=== PATIENT | female | born 1970 | race Caucasian/White ===

== ENCOUNTER 2018-03-03 20:34 | Inpatient (IN) ==
[2018-03-03] MEDS ORDERED: Ondansetron 4 MG/2 ML VIAL IVP STA (21:48)
--- NOTE | 2018-03-03 21:53 | Emergency Department Note ---
Disposition Clinical Impression: Febrile neutropenia, Cancer of anorectum Diarrhea Qualifiers: Diarrhea type: unspecified type Qualified Code(s): R19.7 - Diarrhea, unspecified Disposition: Admitted As Inpatient Forms: ED Satisfaction Letter General Adult HPI - General Chief complaint: ED Fever Stated complaint: "Fever/Sent by Cancer Doctor" Time Seen by Provider: 03/03/18 21:34 Source: patient Limitations: no limitations - History of Present Illness HPI Narrative: Patient with anorectal cancer metastasis to lymph nodes undergoing chemotherapy and radiation referred in by her oncologist due to fever up to 101.2 at home, 3 days after chemotherapy. She is having a bowel movement about every 2 hours as she describes as yellow and C and E. The power on the way out. She also had burning with urination that she attributes to her radiation therapy. There is some intermittent abdominal discomfort over she has no abdominal pain now. She has noted blood in her stool, which is not uncommon for her. No new rashes, she is being treated for cutaneous candidiasis. No chest pain currently, although she has intermittent chest pressure. She attributes this chest pressure to the chemotherapy and says is common for her after chemotherapy. Denies shortness of breath, cough, rhinorrhea, sore throat, ear pain. No vomiting. Pain Scale: 4 - Related Data Home Medications Medication Instructions Recorded Confirmed Mag-Oxide Magnesium 400 mg PO DAILY 06/21/17 02/24/18 Flaxseed Oil/[place] 3,6,9 [Sv 1 each PO DAILY 01/07/18 02/24/18 Flaxseed Oil 1,300 mg Sftgl] Hydrocortisone 1% CREAM [Cortaid] 28 appl TP BID 01/07/18 02/24/18 Previous Rx's Medication Instructions Recorded Lactulose [Enulose] 10 gm PO BID PRN #500 mls 01/07/18 Dexamethasone [Decadron] 4 mg PO BID PRN #45 tab 01/15/18 Lidocaine/Prilocaine [Emla] 1 appl TP AD PRN #30 gm 01/15/18 Ondansetron [Zofran] 8 mg PO Q8HR PRN #60 tablet 01/15/18 Prochlorperazine Maleate 10 mg PO Q6HR PRN #90 tablet 01/15/18 [Compazine] HydrOXYzine Pamoate [Vistaril] 50 mg PO BID PRN #60 capsule 01/20/18 predniSONE [PredniSONE] 10 mg PO AD #21 tablet 01/20/18 Omeprazole [PriLOSEC] 20 mg PO DAILY #30 cap 01/30/18 Magic Mouthwash [Magic Mouthwash 10 ml PO QID PRN #240 ml 02/03/18 BLM] Nystatin [Nystatin Suspension] 500,000 units PO QID #120 ml 02/03/18 Fluconazole [Diflucan] 100 mg PO DAILY #7 tablet 02/06/18 Doxycycline Hyclate 100 mg PO BID 10 Days #20 capsule 02/10/18 Oxycodone HCl 5 mg PO BID PRN 30 Days #60 tablet 02/18/18 Phenazopyridine [Pyridium] 100 mg PO TID PRN #90 tablet 02/20/18 Morphine Sulfate [Arymo ER] 15 mg PO Q12H 20 Days #40 tab.po.er 02/26/18 Allergies Allergy/AdvReac Type Severity Reaction Status Date / Time Penicillins Allergy Rash Verified 03/03/18 20:47 Sulfa (Sulfonamide Allergy Rash Verified 03/03/18 20:47 Antibiotics) All systems ED: reviewed and negative except as stated. Past Medical History - Past Medical History Medical history: Reports: cancer, migraine Surgical history: Reports: Psychiatric history: Reports: no psych history - Social History Smoking Status: Never smoker Smokeless Tobacco Status: No Alcohol use: Reports: none Drug use: Reports: none Physical Exam Vital signs noted please see nurse's notes. Gen.: Well-developed, well-nourished patient lying in bed who appears nontoxic. Head: Atraumatic, normocephalic. Eyes: Sclerae anicteric. ENT: Mucous membranes moist. Heart: Regular rate and rhythm without appreciable murmur. Lungs: Normal respiratory pattern without respiratory distress, lungs clear to auscultation bilaterally. Abdomen: Soft, nontender, nondistended, no guarding or peritoneal signs. Skin: Warm and dry with changes consistent with cutaneous candidiasis in the groin folds. No signs of cellulitis. Rectal: External exam reveals hemorrhoids but no abscess. Digital exam deferred. Neurologic: Awake, alert with normal speech and mental status. Cranial nerves grossly intact. No focal deficits or lateralizing signs. Psychiatric: Normal mood and affect. Muscular skeletal: No peripheral edema. No signs of trauma or DVT. - General Limitations: no limitations General appearance: alert, in no apparent distress Course Vital Signs Temperature 98.3 F 03/03/18 20:47 Pulse Rate 104 03/03/18 20:47 Respiratory Rate 14 03/03/18 20:47 Blood Pressure 121/79 03/03/18 20:47 O2 Sat by Pulse Oximetry 92 03/03/18 20:47 Temperature 98.3 F 03/03/18 20:47 Pulse Rate 104 03/03/18 20:47 Respiratory Rate 14 03/03/18 20:47 Blood Pressure 121/79 03/03/18 20:47 O2 Sat by Pulse Oximetry 92 03/03/18 20:47 Oxygen Delivery Oxygen Delivery Room Air Medical Decision Making - Lab Data Result diagrams: 03/03/18 22:08 03/03/18 22:08 Lab Results 03/03/18 03/03/18 03/03/18 Range/Units 22:08 22:08 22:08 WBC 1.5 L (4.3-11.1) K/mcL RBC 3.81 L (3.82-4.97) M/mcL Hgb 11.4 L (11.5-15.4) g/dL Hct 32.9 L (35.3-44.9) % MCV 86.4 (83.0-100.0) fL MCH 29.9 (28.0-33.3) pg MCHC 34.7 (31.6-35.5) g/dL RDW 13.5 (11.5-14.5) % Plt Count 183 (140-400) K/mcL MPV 9.7 (9.4-12.4) fL Immature Gran % 1.3 (0-4) % Seg Neutrophils % 61.2 % Lymphocytes % 7.9 % Monocytes % 24.3 % Eosinophils % 4.6 % Basophils % 0.7 % Neutrophils # 0.9 L (1.6-8.9) K/mcL Lymphocytes # 0.1 L (0.6-4.6) K/mcL Monocytes # 0.4 (0.0-1.3) K/mcL Eosinophils # 0.1 (0.0-0.6) K/mcL Basophils # 0.0 (0.0-0.2) K/mcL Nucleated RBCs/100 WBC 1.3 H (0) /100 WBC Platelet Estimate Normal (Normal) Sodium 127 L (136-145) mEq/L Potassium 3.7 (3.5-5.1) mEq/L Chloride 86 L (98-107) mEq/L Carbon Dioxide 33 H (23-29) mEq/L BUN 28 H (6-20) mg/dL Creatinine 1.05 (0.60-1.20) mg/dL Est GFR ( Amer) > 60 (> 60) Est GFR (Non-Af Amer) 56 L (> 60) BUN/Creatinine Ratio 27 H (6-26) Glucose 150 H (70-105) mg/dL Calculated Osmolality 272 L (280-300) Calcium 9.3 (8.6-10.3) mg/dL Total Bilirubin 1.5 H (0.3-1.0) mg/dL AST 12 L (13-39) Units/L ALT 15 (7-52) Units/L Alkaline Phosphatase 45 (34-104) Units/L Troponin I 0.03 (< 0.04) ng/mL Serum Total Protein 5.9 L (6.4-8.9) g/dL Albumin 3.4 L (3.5-5.7) g/dL Globulin 2.5 (2.4-3.5) g/dL Albumin/Globulin Ratio 1.4 (1.1-2.2)
[2018-03-03 22:23] LABS: Basophils % 0.7 %; Eosinophils # 0.1 K/mcL (0.0-0.6); Eosinophils % 4.6 %; Hematocrit 32.9 % (35.3-44.9); Hemoglobin 11.4 g/dL (11.5-15.4); Immature Granulocytes % 1.3 % (0-4); Lymphocytes # 0.1 K/mcL (0.6-4.6); Lymphocytes % 7.9 %; Mean Corpuscular HGB Conc 34.7 g/dL (31.6-35.5); Mean Corpuscular Hemoglobin 29.9 pg (28.0-33.3); Mean Corpuscular Volume 86.4 fL (83.0-100.0); Mean Platelet Volume 9.7 fL (9.4-12.4); Monocytes # 0.4 K/mcL (0.0-1.3); Monocytes % 24.3 %; Neutrophils # 0.9 K/mcL (1.6-8.9); Nucleated Red Blood Cells 1.3 /100 WBC (0); Platelet Count 183 K/mcL (140-400); Red Blood Count 3.81 M/mcL (3.82-4.97); Red Cell Distribution Width 13.5 % (11.5-14.5); Segmented Neutrophils % 61.2 %
[2018-03-03] MEDS ORDERED: Lidocaine Viscous Oral Soln 15 ML SOLUTION ONE (22:40)
[2018-03-03 22:45] LABS: Alanine Aminotransferase 15 Units/L (7-52); Albumin 3.4 g/dL (3.5-5.7); Albumin/Globulin Ratio 1.4 (1.1-2.2); Alkaline Phosphatase 45 Units/L (34-104); Aspartate Amino Transferase 12 Units/L (13-39); BUN/Creatinine Ratio 27 (6-26); Bilirubin,Total 1.5 mg/dL (0.3-1.0); Blood Urea Nitrogen 28 mg/dL (6-20); Calcium 9.3 mg/dL (8.6-10.3); Carbon Dioxide 33 mEq/L (23-29); Chloride 86 mEq/L (98-107); Globulin 2.5 g/dL (2.4-3.5); Glucose 150 mg/dL (70-105); Osmolality,Calculated 272 (280-300); Potassium 3.7 mEq/L (3.5-5.1); Sodium 127 mEq/L (136-145); Total Protein 5.9 g/dL (6.4-8.9); eGFR For Non-African Americans 56 (> 60)
[2018-03-03 22:46] LABS: Platelet Estimate Normal (Normal)
[2018-03-03] MEDS ORDERED: 0.9 % Sodium Chloride 1,000 ML IVC ONE (23:30)
[2018-03-04] MEDS ORDERED: Cefepime HCl 1,000 MG in Water for inj. (sterile) 20 ML 10 ML IVPB ONE
[2018-03-04] MEDS ORDERED: Naloxone 0.4 MG/ML INJ IVP PRN (01:07)
--- NOTE | 2018-03-04 01:16 | Internal Med History&Physical ---
<Samm Borja - Last Filed: 03/04/18 03:20> Date of Encounter: 03/04/18 Time of Encounter: 01:15 Internal Medicine - H&P: HPI Chief complaint: Fever Admitted From: Emergency Dept Plans for Post Hospital Care: Home History of present illness: Ms. Casiano is a 47 year old female with history of anorectal cancer on chemotherapy and radiation who presents to the emergency room at recommendation from her oncologist due to fever for several hours. She states that earlier this afternoon she felt that her hands were starting to get hot and had a burning sensation so she checked her temperature and found that it was 100.5 and later did raise to 101.2. In addition of this, she noticed that she was having significant diarrhea which was more than she typically does. She started another round of chemotherapy about 96 hours ago, and she says the diarrhea is common during this chemotherapy, however this is more severe than it has been in the past. She says in the past she has been able to make it to the bathroom when she feels the urge to have a bowel movement, however in this case she was not able to. The diarrhea has been watery and yellow in color, as well as severely foul-smelling. She also describes the diarrhea is causing it cramping and burning sensation. She was having diarrhea approximately every 2 hours. When the fever started she immediately called her cancer doctor because she was concerned about it, and was told to come to the emergency room at that time. Prior to leaving for the emergency room she did take Imodium, which was helpful for the diarrhea and slowed it down. In the emergency room, she received 2 L bolus of normal saline. She also had labs completed which demonstrated neutropenia with a white blood cell count of 1.5. While in the emergency room, the patient started experiencing some palpitations and was noted on the odor she had bigeminy pattern which resolved on its own. She received a dose of cefepime after having cultures drawn and she was transferred to the floor for management of neutropenic fever. Past Med Surg Social Fam HX - Past Medical History Medical history: cancer, migraine Additional medical history: stg 3 anal cancer Psychiatric history: no psych history - Past Surgical History Surgical History: Additional surgical history: uterine ablation - Social History Smoking Status: Never smoker Smokeless Tobacco Status: No Alcohol use: none Drug use: none Internal Medicine - H&P: Meds Mag-Oxide Magnesium 400 mg PO DAILY 06/21/17 [History] Flaxseed Oil/[place] 3,6,9 [Sv Flaxseed Oil 1,300 mg Sftgl] 1 each PO DAILY [History] Hydrocortisone 1% CREAM [Cortaid] 28 appl TP BID 01/07/18 [History] Lactulose [Enulose] 10 gm PO BID PRN #500 mls 01/07/18 [Rx] Dexamethasone [Decadron] 4 mg PO BID PRN #45 tab 01/15/18 [Rx] Lidocaine/Prilocaine [Emla] 1 appl TP AD PRN #30 gm 01/15/18 [Rx] Ondansetron [Zofran] 8 mg PO Q8HR PRN #60 tablet 01/15/18 [Rx] Prochlorperazine Maleate [Compazine] 10 mg PO Q6HR PRN #90 tablet 01/15/18 [Rx] HydrOXYzine Pamoate [Vistaril] 50 mg PO BID PRN #60 capsule 01/20/18 [Rx] predniSONE [PredniSONE] 10 mg PO AD #21 tablet 01/20/18 [Rx] Omeprazole [PriLOSEC] 20 mg PO DAILY #30 cap 01/30/18 [Rx] Magic Mouthwash [Magic Mouthwash BLM] 10 ml PO QID PRN #240 ml 02/03/18 [Rx] Nystatin [Nystatin Suspension] 500,000 units PO QID #120 ml 02/03/18 [Rx] Fluconazole [Diflucan] 100 mg PO DAILY #7 tablet 02/06/18 [Rx] Doxycycline Hyclate 100 mg PO BID 10 Days #20 capsule 02/10/18 [Rx] Oxycodone HCl 5 mg PO BID PRN 30 Days #60 tablet 02/18/18 [Rx] Phenazopyridine [Pyridium] 100 mg PO TID PRN #90 tablet 02/20/18 [Rx] Morphine Sulfate [Arymo ER] 15 mg PO Q12H 20 Days #40 tab.po.er 02/26/18 [Rx] Loperamide HCl [Imodium A-D] 2 mg PO BID 03/04/18 [History] 3 Allergy/AdvReac Type Severity Reaction Status Date / Time Penicillins Allergy Rash Verified 03/03/18 20:47 Sulfa (Sulfonamide Allergy Rash Verified 03/03/18 20:47 Antibiotics) All Systems PM: A 10-system review of systems was performed and is negative for pertinent findings except as documented above in the HPI. Review of systems: Constitutional: Denies weight loss, generalized fatigue. Admits to fever and chronic chills Head/Neck: Denies VALLE, neck stiffness EENT: Denies vision changes/blurriness, rhinorrhea, congestion, sore throat CVS: Denies chest pain, palpitations, ANDERSON, orthopnea, edema, PND Pulm: Denies SOB, cough, sputum, hemoptysis, wheezing GI: Denies nausea, vomiting, constipation, melena, hematemasis. She does admit to abdominal cramping and significant diarrhea : Denies increased frequency, urgency. Admits to severe dysuria and hematuria. Heme: Denies ease of bleeding or bruising MSK: Denies joint pain, limited ROM Skin: Admits to radiation power in the anogenital area Neuro: Denies VALLE, paresthesias, focal deficits, ataxia - Constitutional Vitals: Temp Pulse Resp BP Pulse Ox 98.9 F 95 17 116/73 90 03/04/18 00:57 03/04/18 00:57 03/04/18 00:57 03/04/18 00:57 03/04/18 00:57 Exam: Gen: Vitals noted. No acute distress. HEENT: Normocephalic, atraumatic Neck: Supple. No adenopathy. Cardiac: RRR, no murmur, +S1/S2 Pulmonary: CTA bilaterally, no wheezes, rales or rhonchi, equal chest expansion Abdomen: soft, lower abdomen mildly tender to palpation, no guarding Back: Nontender throughout. MSK: ROM intact, no joint swelling noted Extremities: no BLE edema, nontender calf, no cyanosis or clubbing Skin: Erythema consistent with cutaneous candidiasis in the groin folds. External rectal exam unremarkable for abscess. Neuro: moves all extremities, no focal deficits. A&Ox3 Psych: Appropriate mood and behavior Internal Med - H&P Results - Labs CBC & Chem 7: 03/03/18 22:08 03/03/18 22:08 - Assessment and plan (1) Febrile neutropenia Current Visit: Yes Status: Acute Assessment and plan: Neutropenic fever, currently on chemotherapy. WBC 1.5 ANC 94 Patient has been afebrile during current stay, however had fever as high as 101.2 at home Likely source of infection at this time is infectious diarrhea, possible C. difficile Blood and stool cultures pending, GI panel pending Plan: Cefepime Day 1 PO Vancomycin Day 1, D/c pending negative c. diff Stat lactic acid Repeat CBC in AM Neutropenic precautions Consult to oncology (2) Diarrhea Current Visit: Yes Status: Acute Assessment and plan: Diarrhea, presumed infectious Patient is neutropenic with fever, has foul smelling diarrhea GI Panel and Stool culture pending Start PO vancomycin now, D/c if negative culture Qualifiers: Diarrhea type: presumed infectious Qualified Code(s): R19.7 - Diarrhea, unspecified (3) Cancer of anorectum Current Visit: Yes Status: Acute Assessment and plan: Patient see's Dr. Reyes Was scheduled for radiation in the morning as outpatient Will consult Heme/onc (4) DVT prophylaxis Current Visit: Yes Status: Acute Assessment and plan: SQ Heparin (5) Hyponatremia Current Visit: Yes Status: Acute Assessment and plan: Hypovolemic hyponatremia Patient presents with dry mucous membranes, hypochloremic hyponatremia Likely secondary to diarrhea and volume loss Will check Urine sodium, and serum + urine osm Start Normal saline at 100mL/hr, recheck BMP in AM - Time Spent With Patient Total time spent is greater than 50% in coordination of care (as documented) at patient's floor/unit and/or counseling patient: <Martha Longoria - Last Filed: 03/04/18 05:04> Date of Encounter: 03/04/18 Internal Medicine - H&P: HPI History of present illness: Ms. Casiano is a 47 year old female All Systems PM: A 10-system review of systems was performed and is negative for pertinent findings except as documented above in the HPI. - Constitutional Vitals: Temp Pulse Resp BP Pulse Ox 98.9 F 95 17 116/73 90 03/04/18 00:57 03/04/18 00:57 03/04/18 00:57 03/04/18 00:57 03/04/18 00:57 Internal Med - H&P Results - Labs CBC & Chem 7: 03/03/18 22:08 03/03/18 22:08 Labs: Urine 03/04/18 Range/Units 01:30 Urine Color Dark Yellow (Yellow) Urine Clarity Cloudy A (Clear) Urine pH 7.0 (5.0-8.0) pH Units Ur Specific [place] > 1.030 H (1.010-1.025) Urine Protein 30 H (Neg-Trace) mg/dL Urine Glucose (UA) Normal (Normal) mg/dL - Assessment and plan (1) Febrile neutropenia Current Visit: Yes Status: Acute (2) Diarrhea Current Visit: Yes Status: Acute Qualifiers: Diarrhea type: presumed infectious Qualified Code(s): R19.7 - Diarrhea, unspecified (3) Cancer of anorectum Current Visit: Yes Status: Acute (4) DVT prophylaxis Current Visit: Yes Status: Acute (5) Hyponatremia Current Visit: Yes Status: Acute - Time Spent With Patient Total time spent is greater than 50% in coordination of care (as documented) at patient's floor/unit and/or counseling patient: - Attending Attestation Cornelio Casiano is a 47 year old woman currently undergoing chemo and radiation therapy for 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 Her last chemotherapy session was 4 days ago and she presents now with the complaint of having fever at home and changes to her bowel movements. She states that while she usually gets diarrhea with her chemotherapy, on this occasion she is unable to control herself as it is more frequent and explosive in nature. She denies any change in the color stating that it is yellowish brown and she does notice streaks of blood which she says is normal for her due to the friable mucosa in that area. She does have associated cramping abdominal pain. On arrival here she was seen mildly tachycardic but normotensive and afebrile. She was leukopenic at 1.5 with an ANC of 900. She is also seen to have hyponatremia and hypochloremia. On physical exam she is well-developed and in no acute distress. She has slightly dry mucous membranes. Mild lower lip mucositis is evident. No oral thrush is visible. Chest exam is benign. Abdomen is soft and not tender to palpation. Extremities without signs of peripheral edema. Rectal exam deferred due to discomfort. Chemo-Port on right upper chest wall with no inflammatory signs present. We will admit for neutropenic fever as well as diarrhea. We should be concerned for C. difficile given her contact with healthcare and the changes to the normal characteristic diarrhea she has. Recommend to start treating empirically with oral vancomycin until the C. difficile PCR is released and if negative can be discontinued. Continue empiric cefepime 2 g every 8 hours for gram-negative enteric coverage. Urine microscopically appears abnormal and will send for culture. If she remains persistently febrile over the next 48 hours we will need to add on vancomycin for gram-positive coverage but for now she shows no signs of skin and soft tissue infection and her chemotherapy port site appears intact and was recently inserted just over 4 weeks ago. Blood cultures have been obtained peripherally and centrally just in case. Recommend stool cultures as well. IV saline resuscitation for hyponatremia and hypochloremia which are likely associated with GI fluid losses and poor oral intake. Neutropenic precautions should be applied. Hold off on antimotility agents until stool C. difficile testing is performed. Monitor electrolytes. DVT prophylaxis with subcutaneous heparin. Consults oncologist for follow-up care. Resume diet as tolerated.
[2018-03-04 02:24] LABS: Bilirubin,Urine Small (Negative); Blood,Urine Negative (Negative); Clarity,Urine Cloudy (Clear); Glucose,Urine (UA) Normal (Normal); Ketones,Urine Negative (Negative); Leukocyte Esterase,Urine Moderate (Negative); Nitrite,Urine Positive (Negative); Protein,Urine 30 mg/dL (Neg-Trace); Specific Gravity,Urine > 1.030 (1.010-1.025); Urobilinogen,Urine Normal (Normal)
[2018-03-04] MEDS: 0.9 % Sodium Chloride 1,000 ML IVC SCH ×2 (02:29→13:04)
[2018-03-04 02:32] LABS: Bacteria,Urine None Seen per hpf (None-Few); Hyaline Casts,Urine None Seen per lpf (None-Few); RBC,Urine 0-3 per hpf (0-3); Squamous Epithelial Cell,Urine Moderate per lpf (None-Few)
[2018-03-04 02:34] LABS: Color,Urine Dark Yellow (Yellow)
[2018-03-04] MEDS ORDERED: *HR* Promethazine 25 MG/ML VIAL IVP PRN (03:42)
[2018-03-04] MEDS ORDERED: Magic Mouthwash 10 ML UD Cup PO PRN (05:05)
[2018-03-04] MEDS ORDERED: Ondansetron ODT 4 MG TAB.RAPDIS PO PRN (05:05)
[2018-03-04] MEDS: *HR* Morphine Sulfate SR (12 HR) 15 MG TABLET.ER PO SCH ×2 (05:37→17:44)
[2018-03-04] MEDS ORDERED: *HR* Heparin 5,000 UNIT/ML VIAL SQ SCH (06:00)
[2018-03-04 06:37] LABS: Hematocrit 31.2 % (35.3-44.9); Hemoglobin 10.7 g/dL (11.5-15.4); Mean Corpuscular HGB Conc 34.3 g/dL (31.6-35.5); Mean Corpuscular Hemoglobin 29.8 pg (28.0-33.3); Mean Corpuscular Volume 86.9 fL (83.0-100.0); Mean Platelet Volume 9.8 fL (9.4-12.4); Nucleated Red Blood Cells 1.5 /100 WBC (0); Platelet Count 173 K/mcL (140-400); Red Blood Count 3.59 M/mcL (3.82-4.97); Red Cell Distribution Width 13.5 % (11.5-14.5)
[2018-03-04 06:49] LABS: BUN/Creatinine Ratio 22 (6-26); Blood Urea Nitrogen 22 mg/dL (6-20); Carbon Dioxide 32 mEq/L (23-29); Chloride 89 mEq/L (98-107); Potassium 3.5 mEq/L (3.5-5.1); Sodium 127 mEq/L (136-145)
[2018-03-04 06:50] LABS: Calcium 8.6 mg/dL (8.6-10.3); Glucose 143 mg/dL (70-105); Magnesium 2.1 mg/dL (1.6-2.6); Osmolality,Calculated 270 (280-300); eGFR For Non-African Americans 59 (> 60)
[2018-03-04 06:54] LABS: INR 1.3; Prothrombin Time 14.5 Seconds (9.4-12.1)
[2018-03-04 07:14] LABS: Phosphorous 3.3 mg/dL (2.7-4.5)
[2018-03-04 07:17] LABS: Adenovirus F 40/41 PCR Not detected (Not detect); Astrovirus PCR Not detected (Not detect); Campylobacter by PCR Not detected (Not detect); Cryptosporidium by PCR Not detected (Not detect); Cyclospora cayetanensis PCR Not detected (Not detect); E. coli O157 by PCR Not detected (Not detect); Entamoeba histolytica PCR Not detected (Not detect); Enteroaggregative E.coli(EAEC) Not detected (Not detect); Enteropathogenic E.coli(EPEC) Not detected (Not detect); Enterotoxigenic E.coli (ETEC) Not detected (Not detect); Giardia lamblia PCR Not detected (Not detect); Norovirus GI/GII PCR Not detected (Not detect); Plesiomonas shigelloides PCR Not detected (Not detect); Rotavirus A PCR Not detected (Not detect); Salmonella PCR Not detected (Not detect); Sapovirus PCR Not detected (Not detect); Shig/EnteroinvasiveE coli EIEC Not detected (Not detect); Shigalike tox-prod E coli STEC Not detected (Not detect); Vibrio PCR Not detected (Not detect); Vibrio cholerae PCR Not detected (Not detect); Yersinia enterocolitica PCR Not detected (Not detect)
[2018-03-04 07:19] LABS: C.difficile Toxin A/B by PCR DETECTED (Not detect)
[2018-03-04 08:15] LABS: Lymphocytes # 0.5 K/mcL (0.6-4.6); Monocytes # 0.1 K/mcL (0.0-1.3); Neutrophils # 0.8 K/mcL (1.6-8.9); Platelet Estimate Normal (Normal)
[2018-03-04] MEDS ORDERED: Lactobacillus 1 EACH CAP.SPRINK PO SCH (09:00)
[2018-03-04] MEDS: Cefepime HCl 2,000 MG in Water for inj. (sterile) 20 ML 20 ML IVP SCH ×2 (10:42→16:49)
[2018-03-04] MEDS: Vancomycin Oral Soln 125 MG/2.5 ML UDC PO SCH ×4 (10:43→21:16)
--- NOTE | 2018-03-04 11:54 | Infectious Disease Consult ---
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 Was started on 5-FU/mitomycin in January 2018. Her second cycle was 02/24/2018. Tenths to have diarrhea postchemotherapy for 2-3 days and then it resolves (2) Febrile neutropenia Status: Acute Assessment and plan: Workup revealing for C. difficile colitis Rest of the workup including blood cultures, urine culture is really nonrevealing. Consider stopping the cefepime and just treating for the C. difficile and watch closely see how the patient does clinically If ANC continues to decrease and patient continues to be febrile, we will consider restarting the cefepime Need to watch the patient very closely (3) C. difficile colitis Status: Acute Assessment and plan: Patient denies any recent antibiotic use PCR on the stool on 03/04/2018 was positive for C. difficile toxin Continue oral vancomycin and a 25 mg by mouth every 6 hours 14 days Proper hydration No probiotics (4) Diarrhea Status: Acute Assessment and plan: Secondary to C. difficile colitis Improving since she has been here Continue oral vancomycin 125 mg every 6 hours Duration of treatment 14 days No probiotics because the patient will be immunosuppressed Qualifiers: Diarrhea type: presumed infectious Qualified Code(s): R19.7 - Diarrhea, unspecified (5) Allergy to multiple antibiotics Status: Acute Assessment and plan: Allergic to sulfa and penicillin She had severe rash with both no anaphylaxis (6) Hyponatremia Status: Acute Infectious Disease HPI - Data of Consult Patient: new to practice Consult date: 03/04/18 Requesting Physician: Martha Longoria MD Primary Care Provider: Lalito Gardner MD Family Provider: SYDNEE - Consult Narrative Reason for consult: Neutropenic fever, Clostridium difficile colitis History of present illness: Ms. Casiano is a 47 year old female Patient is a 47-year-old woman who presented to the ED from the oncologist office for fever for several hours. We are asked to evaluate for C. difficile colitis and neutropenic fever. 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 Patient was started on 5-FU/mitomycin in January 2018. Her second cycle was 02/24/2018. Patient apparently was at the oncologist's office and she was feeling warm to the checked her temperature and it was 101.2 Fahrenheit. Patient was also having significant diarrhea. Apparently she was started on another round of chemotherapy 3 days prior to admission. Since admission, patient has been afebrile, tachycardic. No tachypnea and hemodynamically stable. Presenting labs revealed a WBC of 1.5. A BMP revealed hyponatremia but normal kidney function with elevated BUN to creatinine ratio of 28. Urinalysis was not impressive. Blood cultures 2 were done and results are pending. Patient's stool was sent and was positive for C. difficile. We were asked to evaluate the patient and make further recommendations. Currently patient is admitted. She has family at bedside. Tells me that she feels okay. She has had 2 watery bowel movements today. Denies any headache. No chest pain. No shortness of breath. No URI symptoms. No abdominal pain. No nausea or vomiting. No joint pain or rash. CC: Martha Longoria MD Past Med Surg Social Fam HX - Past Medical History Medical history: cancer, migraine Additional medical history: stg 3 anal cancer Psychiatric history: no psych history - Past Surgical History Surgical History: Additional surgical history: uterine ablation - Social History Smoking Status: Never smoker Smokeless Tobacco Status: No Alcohol use: none Drug use: none Infectious Disease-CN:Meds Lactulose [Enulose] 10 gm PO BID PRN #500 mls 01/07/18 [Rx] Dexamethasone [Decadron] 4 mg PO BID PRN #45 tab 01/15/18 [Rx] Lidocaine/Prilocaine [Emla] 1 appl TP AD PRN #30 gm 01/15/18 [Rx] Ondansetron [Zofran] 8 mg PO Q8HR PRN #60 tablet 01/15/18 [Rx] Prochlorperazine Maleate [Compazine] 10 mg PO Q6HR PRN #90 tablet 01/15/18 [Rx] HydrOXYzine Pamoate [Vistaril] 50 mg PO BID PRN #60 capsule 01/20/18 [Rx] Magic Mouthwash [Magic Mouthwash BLM] 10 ml PO QID PRN #240 ml 02/03/18 [Rx] Oxycodone HCl 5 mg PO BID PRN 30 Days #60 tablet 02/18/18 [Rx] Phenazopyridine [Pyridium] 100 mg PO TID PRN #90 tablet 02/20/18 [Rx] Morphine Sulfate [Arymo ER] 15 mg PO Q12H 20 Days #40 tab.po.er 02/26/18 [Rx] Omeprazole [PriLOSEC] 40 mg PO DAILY 03/04/18 [History] 3 Allergy/AdvReac Type Severity Reaction Status Date / Time Penicillins Allergy Rash Verified 03/03/18 20:47 Sulfa (Sulfonamide Allergy Rash Verified 03/03/18 20:47 Antibiotics) Review of systems: 10 point review of systems done, negative other for what mentioned in history of present illness. Exam - Constitutional Vitals: Temp Pulse Resp BP Pulse Ox 99 F 93 18 98/65 91 03/04/18 07:27 03/04/18 07:27 03/04/18 07:27 03/04/18 07:27 03/04/18 07:27 General appearance: febrile, cooperative, no acute distress - Head Head exam: Present: atraumatic, normocephalic - Eye Eye exam: Present: EOMI, PERRL, sclera anicteric - ENT ENT exam: Present: mucous membranes dry Additional comments: Positive oral thrush - Neck Neck exam: Absent: lymphadenopathy, meningismus - Respiratory Respiratory exam: Present: CTAB. Absent: wheezes - Cardiovascular Cardiovascular exam: Present: RRR, +S1, +S2 - GI/Abdominal GI/Abdominal exam: Present: normal bowel sounds, soft. Absent: firm, guarding, tenderness - Extremities Exam Extremities exam: Present: full ROM, joint swelling - Neurological Exam Neurological exam: Present: alert, oriented X3. Absent: speech deficit - Psychiatric Psychiatric exam: Present: normal affect, normal mood - Skin Skin exam: Present: normal color. Absent: cyanosis, rash Infectious Disease CN: Results - Labs CBC & Chem 7: 03/04/18 06:05 03/04/18 06:05 Serology: Serology 03/04/18 03/04/18 Range/Units 01:30 01:30 Urine Color Dark Yellow (Yellow) Urine Clarity Cloudy A (Clear) Urine pH 7.0 (5.0-8.0) pH Units Ur Specific [place] > 1.030 H (1.010-1.025) Urine Protein 30 H (Neg-Trace) mg/dL Urine Glucose (UA) Normal (Normal) mg/dL Urine Ketones Negative (Negative) mg/dL Urine Blood Negative (Negative) Urine Nitrite Positive A (Negative) Urine Bilirubin Small H (Negative) Urine Urobilinogen Normal (Normal) mg/dL Ur Leukocyte Esterase Moderate H (Negative) Urine Microscopic RBC 0-3 (0-3) per hpf Urine Microscopic WBC 5-15 H (0-3) per hpf Ur Squamous Epith Cells Moderate H (None-Few) per lpf Urine Bacteria None Seen (None-Few) per hpf Hyaline Casts None Seen (None-Few) per lpf Stl C. cayetanensis PCR Not detected (Not detect) Stool Rotavirus A PCR Not detected (Not detect) Stl Adenov F 40/41 PCR Not detected (Not detect) Stool Astrovirus (PCR) Not detected (Not detect) Stool Campylobacter PCR Not detected (Not detect) Stl C. diff Tox A/B PCR DETECTED A (Not detect) Stool Cryptosporidium PCR Not detected (Not detect) Stl Sh Tox Pr E STEC PCR Not detected (Not detect) Stool E coli O157 PCR Not detected (Not detect) Stl Enterotoxigenic E PCR Not detected (Not detect) Stool EPEC (PCR) Not detected (Not detect) Stool EAEC (PCR) Not detected (Not detect) Stl E. histolytica PCR Not detected (Not detect) Stool Giardia Lamblia PCR Not detected (Not detect) Stool Salmonella PCR Not detected (Not detect) Stool Sapovirus (PCR) Not detected (Not detect) Stl P. shigelloides PCR Not detected (Not detect) Stl Shigella/EIEC PCR Not detected (Not detect) St Y.enterocolitica PCR Not detected (Not detect) Stool Vibrio (PCR) Not detected (Not detect) Stl Vibrio cholerae PCR Not detected (Not detect) Stl Norovirus GI/GII PCR Not detected (Not detect) Stl GI Panel (PCR) Com See below Consult Discharge Plan - Plan Referrals: Lalito Gardner MD [Primary Care Provider] - SYDNEE [Other]
--- NOTE | 2018-03-04 12:51 | Event Note ---
Date of Encounter: 03/04/18 Time of Encounter: 09:00 Pt was seen and examined bedside. Denies fever. Still has diarrhea with totally 4 BMs since last night. PE: AAO x 3 HEENT: NC/AT, PERRL Neck: Supple, no LAD Lungs are clear b/l Heart: S1S2, RRR Abd: Soft, NT Ext: No edema Neuro: No focal deficit Plan: 1. Cont cefepime for netropenic fever 2. Cont po vanco for C Diff colitis. add probiotics. 3. Consult ID for abx management.
--- NOTE | 2018-03-04 15:51 | Oncology Inp Consult Note ---
<Aria Arriola L - Last Filed: 03/04/18 18:43> Date of Encounter: 03/04/18 Time of Encounter: 15:00 Assessment and Plan (1) Skin desquamation Status: Acute Assessment and plan: Secondary to perianal radiation Radiation on hold for remainder of week Discussed recommendations with Dr. 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 Last radiation treatment 02/27/2018. Treatment on hold to during acute hospital stay (3) Febrile neutropenia Status: Acute Assessment and plan: ANC 800, mild anemia, platelet count normal TMAX 101.2 on admission Blood cultures-pending UA unremarkable Stool culture-C Diff positive ID consulted-continue oral vanco Oncology would prefer cefepime coverage as we continue to monitor ANC and fever trend - Data of Consult Patient: known to practice within the last 3 years Consult date: 03/04/18 Requesting Physician: Martha Longoria MD Primary Care Provider: Lalito Gardner MD Family Provider: SYDNEE - Consult Narrative Reason for consult: squamous cell carcinoma of the low rectum/anus History of present illness: Ms. 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 She has started concurrent chemoradiation with 5-FU mitomycin per anal cancer protocol initiated 02/10, S/P Cycle #2 02/24/2018. Last radiation treatment 2017. She began to experience diarrhea worsening since her first cycle. Most recently developed fevers, TMAX 101.2 Fahrenheit, she was asked to present to the ER for further evaluation. She was found to be neutropenic, ANC 800, her stool culture has resulted as c diff. positive. Ms. Casiano endorses fever, chills, abdominal cramping, non-bloody diarrhea and symptoms related to ongoing heartburn which worsen when laying flat. She denies cough, SOB, headache, nausea, vomiting or urinary complaint. She is experiences increased perianal pain with bowel movements, perianal irritation and inguinal skin fold excoriation. Past Med Surg Social Fam HX - Past Medical History Medical history: cancer, migraine Additional medical history: stg 3 anal cancer Psychiatric history: no psych history - Past Surgical History Surgical History: Additional surgical history: uterine ablation - Social History Smoking Status: Never smoker Smokeless Tobacco Status: No Alcohol use: none Drug use: none Medications and Allergies Lactulose [Enulose] 10 gm PO BID PRN #500 mls 01/07/18 [Rx] Dexamethasone [Decadron] 4 mg PO BID PRN #45 tab 01/15/18 [Rx] Lidocaine/Prilocaine [Emla] 1 appl TP AD PRN #30 gm 01/15/18 [Rx] Ondansetron [Zofran] 8 mg PO Q8HR PRN #60 tablet 01/15/18 [Rx] Prochlorperazine Maleate [Compazine] 10 mg PO Q6HR PRN #90 tablet 01/15/18 [Rx] HydrOXYzine Pamoate [Vistaril] 50 mg PO BID PRN #60 capsule 01/20/18 [Rx] Magic Mouthwash [Magic Mouthwash BLM] 10 ml PO QID PRN #240 ml 02/03/18 [Rx] Oxycodone HCl 5 mg PO BID PRN 30 Days #60 tablet 02/18/18 [Rx] Phenazopyridine [Pyridium] 100 mg PO TID PRN #90 tablet 02/20/18 [Rx] Morphine Sulfate [Arymo ER] 15 mg PO Q12H 20 Days #40 tab.po.er 02/26/18 [Rx] Omeprazole [PriLOSEC] 40 mg PO DAILY 03/04/18 [History] 3 Allergy/AdvReac Type Severity Reaction Status Date / Time Penicillins Allergy Rash Verified 03/03/18 20:47 Sulfa (Sulfonamide Allergy Rash Verified 03/03/18 20:47 Antibiotics) Constitutional: Present: as per HPI, anorexia, chills, fatigue, fever(s), weakness, weight loss. Absent: frequent falls Eyes: Absent: change in vision Nose, mouth and throat: Absent: dysphagia, mouth lesions, odynophagia Cardiovascular: Absent: chest pain, palpitations Respiratory: Absent: cough, dyspnea, hemoptysis Gastrointestinal: Present: cramping, diarrhea, heartburn. Absent: hematemesis, hematochezia, melena, nausea, vomiting Genitourinary: Absent: dysuria Musculoskeletal: Present: muscle weakness Integumentary: Present: other Additional comments: skin pigmentation changes and moist desquamation to inguinal folds/perianal area Neurological: Absent: focal weakness, frequent falls Hematologic/Lymphatic: Present: as per HPI Oncology - Exam - Constitutional Vitals: Temp Pulse Resp BP Pulse Ox 99.5 F 96 16 127/62 90 03/04/18 14:05 03/04/18 14:05 03/04/18 14:05 03/04/18 14:05 03/04/18 14:05 General appearance: cooperative, no acute distress, no febrile - Head Head exam: Present: atraumatic - ENT ENT exam: Present: mucous membranes moist - Respiratory Respiratory exam: Present: CTAB. Absent: respiratory distress - Cardiovascular Cardiovascular exam: Present: RRR, +S1, +S2 - GI/Abdominal GI/Abdominal exam: Present: normal bowel sounds, soft. Absent: guarding, rebound, tenderness - Extremities Exam Extremities exam: Present: normal inspection. Absent: calf tenderness - Neurological Exam Neurological exam: Present: alert, oriented X3, no focal deficits, strengths equal and symetr throughout - Psychiatric Psychiatric exam: Present: normal affect, normal mood - Skin Additional comments: skin pigmentation changes and moist desquamation to inguinal folds/perianal area Consult Discharge Plan - Plan Referrals: SYDNEE [Other] Lalito Gardner MD [Primary Care Provider] - <Danny Zapata - Last Filed: 03/04/18 18:58> Date of Encounter: 03/04/18 - Data of Consult Requesting Physician: Martha Longoria MD Primary Care Provider: Lalito Gardner MD Family Provider: SYDNEE - Consult Narrative History of present illness: I examined this patient and my medical decision-making was reviewed with the Advanced Practice Nurse, Aria Arriola. I agree with the documented findings, disposition and treatment plan as described except to the extent set forth below. Oncology - Exam - Constitutional Vitals: Temp Pulse Resp BP Pulse Ox 99.5 F 96 16 127/62 90 03/04/18 14:05 03/04/18 14:05 03/04/18 14:05 03/04/18 14:05 03/04/18 14:05
[2018-03-04] MEDS: hydrOXYzine pamoate 25 MG CAPSULE PO PRN (17:44)
[2018-03-04] MEDS: Mag Hydrox/Al Hydrox/Simeth 30 ML UDC PO PRN (17:44)
[2018-03-04] MEDS: *HR* OxyCODONE Immed Rel 5 MG TABLET PO PRN (21:30)
[2018-03-05] MEDS: *HR* OxyCODONE Immed Rel 5 MG TABLET PO PRN ×2 (04:24→20:56)
[2018-03-05] MEDS: Mag Hydrox/Al Hydrox/Simeth 30 ML UDC PO PRN ×2 (04:25→20:58)
[2018-03-05 05:21] LABS: Basophils % 0.9 %; Eosinophils % 4.4 %; Immature Granulocytes % 0.9 % (0-4)
[2018-03-05 05:22] LABS: Eosinophils # 0.1 K/mcL (0.0-0.6); Hematocrit 27.5 % (35.3-44.9); Hemoglobin 9.3 g/dL (11.5-15.4); Lymphocytes # 0.1 K/mcL (0.6-4.6); Mean Corpuscular HGB Conc 33.8 g/dL (31.6-35.5); Mean Corpuscular Hemoglobin 29.9 pg (28.0-33.3); Mean Corpuscular Volume 88.4 fL (83.0-100.0); Mean Platelet Volume 9.8 fL (9.4-12.4); Monocytes # 0.4 K/mcL (0.0-1.3); Monocytes % 36.8 %; Neutrophils # 0.6 K/mcL (1.6-8.9); Platelet Count 151 K/mcL (140-400); Red Blood Count 3.11 M/mcL (3.82-4.97); Red Cell Distribution Width 13.8 % (11.5-14.5)
[2018-03-05 05:35] LABS: BUN/Creatinine Ratio 16 (6-26); Blood Urea Nitrogen 12 mg/dL (6-20); Carbon Dioxide 26 mEq/L (23-29); Chloride 97 mEq/L (98-107); Glucose 117 mg/dL (70-105); Osmolality,Calculated 273 (280-300); Potassium 3.5 mEq/L (3.5-5.1); Sodium 131 mEq/L (136-145); eGFR For Non-African Americans > 60 (> 60)
[2018-03-05] MEDS: *HR* Enoxaparin 40 MG/0.4 ML SYRINGE SQ SCH (05:49)
[2018-03-05] MEDS: *HR* Morphine Sulfate SR (12 HR) 15 MG TABLET.ER PO SCH ×2 (05:49→17:29)
[2018-03-05 06:02] LABS: Platelet Estimate Normal (Normal); Polychromasia 1+ (Not Present)
[2018-03-05] MEDS: Vancomycin Oral Soln 125 MG/2.5 ML UDC PO SCH ×4 (09:38→20:55)
--- NOTE | 2018-03-05 11:41 | Infectious Disease Progress No ---
Date of Encounter: 03/05/18 Time of Encounter: 11:39 - Assessment and Plan (1) Febrile neutropenia Current Visit: Yes Status: Acute Likely secondary to C. diff and recent chemotherapy. ANC 550. Afebrile x 24 hours. Neupogen per the Hem/Onc team. Continue to trend. (2) C. difficile colitis Current Visit: Yes Status: Acute First occurrence. Mild. Clinically improved. Continue vancomycin by mouth 125 mg every 6 hours. (day 2) Duration of treatment depends on the clinical picture, but likely a total of 14 days. Recommend adequate hydration with either IV or oral fluids. We will avoid probiotics at this time given the patient's immunocompromised status. Continue C. difficile precautions per the hospital policy. (3) UTI (urinary tract infection) Current Visit: Yes Status: Acute Asymptomatic bacteriuria vs. UTI. Urine culture is positive for GNR. The patient reports chronic dysuria due to the radiation power to her genital region. Will go ahead and re-start Cefepime 2 grams IV Q12H. Await cultures. De-escalate if/when able. Duration of treatment depends on the clinical picture. Can likely transition to PO antibiotics when ready for discharge, but await final ID and sensitivities. Monitor renal function and dose-adjust antibiotics. 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 Was started on 5-FU/mitomycin in January 2018. Her second cycle was 02/24/2018. Tends to have diarrhea post-chemotherapy for 2-3 days and then it resolves. (5) Hyponatremia Current Visit: No Status: Acute Likely secondary to poor GI intake. Recommend adequate fluid hydration either PO or IV. Management per the primary team. (6) Allergy to multiple antibiotics Current Visit: No Status: Acute Allergic to sulfa and penicillin. She had severe rash with both, but no anaphylaxis. (7) Skin desquamation Current Visit: No Status: Acute Secondary to radiation therapy. Management per the Hem/Onc team. - Subjective Interval history: Patient seen and examined. No acute events noted overnight. Patient states overall she is feeling better today. Reports one episode of chills overnight, but denies any fevers or rigors. Denies chest pain, shortness of breath, or cough. Denies nausea or vomiting. Reports one stool today that seems to be more formed. She reports burning in the genital region with urination and defecation that is chronic. She denies any abdominal pain or flank pains. She denies oral thrush or new skin lesions. Shows report sloughing of the skin to the genital region secondary to radiation therapy. Infect Dis PN-Objective Data - Labs CBC & Chem 7: 03/06/18 05:30 03/06/18 05:30 Labs: Laboratory Results - last 24 hr 03/05/18 03/05/18 04:30 04:30 WBC 1.1 L RBC 3.11 L Hgb 9.3 L Hct 27.5 L MCV 88.4 MCH 29.9 MCHC 33.8 RDW 13.8 Plt Count 151 MPV 9.8 Immature Gran % 0.9 Seg Neutrophils % 50.0 Lymphocytes % 7.0 Monocytes % 36.8 Eosinophils % 4.4 Basophils % 0.9 Neutrophils # 0.6 L Lymphocytes # 0.1 L Monocytes # 0.4 Eosinophils # 0.1 Basophils # 0.0 Platelet Estimate Normal Polychromasia 1+ A Sodium 131 L Potassium 3.5 Chloride 97 L Carbon Dioxide 26 BUN 12 Creatinine 0.75 Est GFR ( Amer) > 60 Est GFR (Non-Af Amer) > 60 BUN/Creatinine Ratio 16 Glucose 117 H Calculated Osmolality 273 L Calcium 8.0 L Exam - Constitutional Vitals: Temp Pulse Resp BP Pulse Ox 99.2 F 100 19 108/72 93 03/05/18 08:01 03/05/18 08:01 03/05/18 08:01 03/05/18 08:01 03/05/18 08:01 General appearance: cooperative, no acute distress, obese - Head Head exam: Present: atraumatic, normal inspection, normocephalic - Eye Eye exam: Present: EOMI, normal appearance, PERRL Pupils: Present: normal accommodation - ENT ENT exam: Present: mucous membranes moist - Neck Neck exam: Present: normal inspection - Respiratory Respiratory exam: Present: CTAB. Absent: rales, respiratory distress, rhonchi, wheezes - Cardiovascular Cardiovascular exam: Present: +S1, +S2, tachycardia. Absent: irregular rhythm - GI/Abdominal GI/Abdominal exam: Present: distended (obese), normal bowel sounds, soft. Absent: tenderness - Rectal Additional comments: Erythematous with skin sloughing noted to the bilateral inguinal areas, perineum , and bhumika-rectal areas. - Extremities Exam Extremities exam: Present: normal inspection. Absent: joint swelling, pedal edema, tenderness - Neurological Exam Neurological exam: Present: alert, oriented X3, no focal deficits - Psychiatric Psychiatric exam: Present: normal affect, normal mood - Skin Skin exam: Present: dry, intact, normal color, warm Consult Discharge Plan - Plan Referrals: SYDNEE [Other] Lalito Gardner MD [Primary Care Provider] - 03/24/18 3:30 pm (This is the soonest hospital follow up...) - Attending Attestation I examined this patient and my medical decision-making was reviewed with the Resident Physician. I agree with the documented findings, disposition and treatment plan as described except to the extent set forth below.
--- NOTE | 2018-03-05 11:43 | Internal Med Progress Note ---
Hospitalist Progress Note - Encounter Date of Encounter: 03/05/18 Time of Encounter: 09:00 - Subjective Interval History: Pt feels fine, no fever overnight. Has 1 BM overnight, loose but formed stool. Denies abd pain/nausea. - Exam Vitals: Temp Pulse Resp BP Pulse Ox 99.2 F 100 19 108/72 93 03/05/18 08:01 03/05/18 08:01 03/05/18 08:01 03/05/18 08:01 03/05/18 08:01 Exam: Gen: Vitals noted. No acute distress. HEENT: Normocephalic, atraumatic Neck: Supple. No adenopathy. Cardiac: RRR, no murmur, +S1/S2 Pulmonary: CTA bilaterally, no wheezes, rales or rhonchi, equal chest expansion Abdomen: soft, lower abdomen mildly tender to palpation, no guarding or rebound Back: Nontender throughout. MSK: ROM intact, no joint swelling noted Extremities: no BLE edema, nontender calf, no cyanosis or clubbing Skin: Erythema consistent with cutaneous candidiasis in the groin folds. External rectal exam unremarkable for abscess. Neuro: moves all extremities, no focal deficits. A&Ox3 Psych: Appropriate mood and behavior - Assessment and Plan (1) Febrile neutropenia Current Visit: No Status: Inactive Assessment and Plan: No further fever. On Cefepime. Highly suspect caused by C Diff Colitis. On po vanco. Neupogen was given per Hemo. Cont closely monitor pt. (2) Diarrhea Current Visit: No Status: Inactive Assessment and Plan: C Diff positive. On Vanco po. Diarrhea improved. (3) Cancer of anorectum Current Visit: No Status: Inactive Assessment and Plan: Appreciate hemo follow up. Cont OP management. (4) DVT prophylaxis Current Visit: No Status: Acute Assessment and Plan: SQ Lovenox (5) Hyponatremia Current Visit: No Status: Acute Assessment and Plan: Improved after IV saline. Pt has good appetite/intake now, no further IVF, closely monitor sodium level. (6) C. difficile colitis Current Visit: Yes Status: Acute Assessment and Plan: Pt denies previous CDI. Cont po vanco to finish 14 days course. No probiotics per ID b/o immunosuppression. DVT Prophylaxis: Lovenox SC - Time Spent with Patient Total time spent is greater than 50% in coordination of care (as documented) at patient's floor/unit and/or counseling patient: 25 - 35 minutes Plan of Care Discussed with: patient Internal Medicine: Result - Labs CBC & Chem 7: 03/05/18 04:30 03/05/18 04:30 Labs: Short CBC 03/05/18 Range/Units 04:30 WBC 1.1 L (4.3-11.1) K/mcL Hgb 9.3 L (11.5-15.4) g/dL Hct 27.5 L (35.3-44.9) % Plt Count 151 (140-400) K/mcL Neutrophils # 0.6 L (1.6-8.9) K/mcL BMP 03/05/18 04:30 Sodium 131 L Potassium 3.5 Chloride 97 L Carbon Dioxide 26 BUN 12 Creatinine 0.75 Glucose 117 H Calcium 8.0 L - ABG Interpretation ABG results: PT/INR, D-dimer PT 14.5 Seconds (9.4-12.1) H 03/04/18 06:05 Consult Discharge Plan - Plan Referrals: SYDNEE [Other] Lalito Gardner MD [Primary Care Provider] - 03/24/18 3:30 pm (This is the soonest hospital follow up...) (2) Diarrhea Qualifiers: Diarrhea type: presumed infectious Qualified Code(s): R19.7 - Diarrhea, unspecified
[2018-03-05] MEDS: Cefepime HCl 2,000 MG in Water for inj. (sterile) 20 ML 20 ML IVP SCH (17:29)
[2018-03-05] MEDS ORDERED: Cefepime HCl 2,000 MG in 0.9 % Sodium Chloride Mini Bag 100 ML IVPB SCH (18:00)
[2018-03-05] MEDS: hydrOXYzine pamoate 25 MG CAPSULE PO PRN (20:56)
[2018-03-05] MEDS: Lidocaine OINT 35.44 GM TUBE TP PRN (21:02)
[2018-03-06] MEDS: *HR* OxyCODONE Immed Rel 5 MG TABLET PO PRN ×5 (04:49→22:35)
[2018-03-06] MEDS: *HR* Morphine Sulfate SR (12 HR) 15 MG TABLET.ER PO SCH ×2 (05:26→17:31)
[2018-03-06] MEDS: Cefepime HCl 2,000 MG in Water for inj. (sterile) 20 ML 20 ML IVP SCH ×2 (05:36→17:30)
[2018-03-06] MEDS: *HR* Enoxaparin 40 MG/0.4 ML SYRINGE SQ SCH (05:42)
[2018-03-06 06:02] LABS: Hematocrit 26.4 % (35.3-44.9); Mean Corpuscular HGB Conc 34.1 g/dL (31.6-35.5); Mean Corpuscular Hemoglobin 30.2 pg (28.0-33.3); Mean Corpuscular Volume 88.6 fL (83.0-100.0); Mean Platelet Volume 9.5 fL (9.4-12.4); Platelet Count 140 K/mcL (140-400); Red Blood Count 2.98 M/mcL (3.82-4.97); Red Cell Distribution Width 13.9 % (11.5-14.5)
[2018-03-06 06:17] LABS: BUN/Creatinine Ratio 12 (6-26); Blood Urea Nitrogen 9 mg/dL (6-20); Calcium 7.9 mg/dL (8.6-10.3); Carbon Dioxide 25 mEq/L (23-29); Chloride 95 mEq/L (98-107); Glucose 136 mg/dL (70-105); Osmolality,Calculated 265 (280-300); Potassium 3.4 mEq/L (3.5-5.1); Sodium 127 mEq/L (136-145); eGFR For Non-African Americans > 60 (> 60)
[2018-03-06 06:58] LABS: Lymphocytes # 0.2 K/mcL (0.6-4.6); Monocytes # 0.4 K/mcL (0.0-1.3)
[2018-03-06 06:59] LABS: Platelet Estimate Normal (Normal)
[2018-03-06] MEDS: Vancomycin Oral Soln 125 MG/2.5 ML UDC PO SCH ×4 (09:18→20:47)
--- NOTE | 2018-03-06 10:35 | Infectious Disease Progress No ---
Date of Encounter: 03/06/18 Time of Encounter: 09:50 - Assessment and Plan (1) Febrile neutropenia Current Visit: Yes Status: Acute Likely secondary to C. diff and recent chemotherapy. ANC improved to 1024 today. Tmax 100.6 overnight. Neupogen per the Hem/Onc team. Continue to trend. Repeat blood cultures x 2 sets now. (2) C. difficile colitis Current Visit: Yes Status: Acute First occurrence. Mild. Clinically improved, but had increase stooling overnight. Likely secondary to re -starting IV antibiotics yesterday. Continue vancomycin by mouth 125 mg every 6 hours. (day 3) Duration of treatment depends on the clinical picture, but likely a total of 14 days. Recommend adequate hydration with either IV or oral fluids. We will avoid probiotics at this time given the patient's immunocompromised status. Continue C. difficile precautions per the hospital policy. (3) UTI (urinary tract infection) Current Visit: Yes Status: Acute Asymptomatic bacteriuria vs. UTI. Urine culture is positive for espitia-sensitive PSEA. The patient reports chronic dysuria due to the radiation power to her genital region. Continue Cefepime 2 grams IV Q12H. Duration of treatment depends on the clinical picture. Can likely transition to PO Levaquin 750mg PO daily when ready for discharge to complete 10 day course. Monitor renal function and dose-adjust antibiotics. 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 Was started on 5-FU/mitomycin in January 2018. Her second cycle was 02/24/2018. Tends to have diarrhea post-chemotherapy for 2-3 days and then it resolves. (5) Hyponatremia Current Visit: No Status: Acute Likely secondary to poor GI intake. Recommend adequate fluid hydration either PO or IV. Management per the primary team. (6) Allergy to multiple antibiotics Current Visit: No Status: Acute Allergic to sulfa and penicillin. She had severe rash with both, but no anaphylaxis. (7) Skin desquamation Current Visit: No Status: Acute Secondary to radiation therapy. Management per the Hem/Onc team. - Subjective Interval history: Patient seen and examined. No acute events noted overnight. Patient states overall she is feeling better today. Reports one episode of chills overnight, but denies any known fevers or rigors. Denies chest pain, shortness of breath, or cough. Denies nausea or vomiting. Reports stools seem to be more formed, but had some incontinence overnight. She reports burning in the genital region with urination and defecation that is chronic. She denies any abdominal pain or flank pains. She denies oral thrush or new skin lesions. She reports sloughing of the skin to the genital region secondary to radiation therapy. Infect Dis PN-Objective Data - Labs CBC & Chem 7: 03/06/18 05:30 03/06/18 05:30 Labs: Laboratory Results - last 24 hr 03/06/18 03/06/18 05:30 05:30 WBC 1.6 L RBC 2.98 L Hgb 9.0 L Hct 26.4 L MCV 88.6 MCH 30.2 MCHC 34.1 RDW 13.9 Plt Count 140 MPV 9.5 Seg Neutrophils % 60.0 Band Neutrophils % 4.0 Lymphocytes % 12.0 Monocytes % 24.0 Neutrophils # 1.0 L Lymphocytes # 0.2 L Monocytes # 0.4 Platelet Estimate Normal Sodium 127 L Potassium 3.4 L Chloride 95 L Carbon Dioxide 25 BUN 9 Creatinine 0.77 Est GFR ( Amer) > 60 Est GFR (Non-Af Amer) > 60 BUN/Creatinine Ratio 12 Glucose 136 H Calculated Osmolality 265 L Calcium 7.9 L Exam - Constitutional Vitals: Temp Pulse Resp BP Pulse Ox 100.6 F H 76 16 133/62 92 03/06/18 07:09 03/06/18 07:09 03/06/18 07:09 03/06/18 07:09 03/06/18 07:09 General appearance: cooperative, no acute distress, obese - Head Head exam: Present: atraumatic, normal inspection, normocephalic - Eye Eye exam: Present: EOMI, normal appearance, PERRL Pupils: Present: normal accommodation - ENT ENT exam: Present: mucous membranes moist - Neck Neck exam: Present: normal inspection - Respiratory Respiratory exam: Present: CTAB. Absent: decreased breath sounds, rales, respiratory distress, rhonchi, wheezes - Cardiovascular Cardiovascular exam: Present: RRR, +S1, +S2 - GI/Abdominal GI/Abdominal exam: Present: distended (obese), normal bowel sounds, soft. Absent: tenderness - Extremities Exam Extremities exam: Present: normal inspection. Absent: joint swelling, pedal edema, tenderness - Neurological Exam Neurological exam: Present: alert, oriented X3, no focal deficits - Psychiatric Psychiatric exam: Present: normal affect, normal mood - Skin Skin exam: Present: dry, intact, normal color, warm Consult Discharge Plan - Plan Referrals: [facility] [Other] Lalito Gardner MD [Primary Care Provider] - 03/24/18 3:30 pm (This is the soonest hospital follow up...) - Attending Attestation I examined this patient and my medical decision-making was reviewed with the Resident Physician. I agree with the documented findings, disposition and treatment plan as described except to the extent set forth below.
--- NOTE | 2018-03-06 12:32 | Internal Med Progress Note ---
Hospitalist Progress Note - Encounter Date of Encounter: 03/06/18 Time of Encounter: 09:00 - Subjective Interval History: Pt has diarrhea today, small amount but more frequent. Denies abd pain/nausea. Has low fever this morning. - Exam Vitals: Temp Pulse Resp BP Pulse Ox 99.0 F 102 16 136/76 92 03/06/18 11:15 03/06/18 11:15 03/06/18 11:15 03/06/18 11:15 03/06/18 11:15 Exam: Gen: Vitals noted. No acute distress. HEENT: Normocephalic, atraumatic Neck: Supple. No adenopathy. Cardiac: RRR, no murmur, +S1/S2 Pulmonary: CTA bilaterally, no wheezes, rales or rhonchi, equal chest expansion Abdomen: soft, lower abdomen mildly tender to palpation, no guarding or rebound Back: Nontender throughout. MSK: ROM intact, no joint swelling noted Extremities: no BLE edema, nontender calf, no cyanosis or clubbing Skin: Erythema consistent with cutaneous candidiasis in the groin folds. External rectal exam unremarkable for abscess. Neuro: moves all extremities, no focal deficits. A&Ox3 Psych: Appropriate mood and behavior - Assessment and Plan (1) Febrile neutropenia Current Visit: No Status: Inactive Assessment and Plan: Still has low fever. Cont Cefepime. Highly suspect caused by C Diff Colitis. On po vanco. WBC level improved slightly. (2) Diarrhea Current Visit: No Status: Inactive Assessment and Plan: C Diff positive. On Vanco po. Cont to finish 14 days course. (3) Cancer of anorectum Current Visit: No Status: Inactive Assessment and Plan: Appreciate hemo follow up. Cont OP management. (4) DVT prophylaxis Current Visit: No Status: Acute Assessment and Plan: SQ Lovenox (5) Hyponatremia Current Visit: No Status: Acute Assessment and Plan: Sodium 127 today. Pt state she is always thirsty and drink large amount of water. Will place fluid restriction and sodium pills. (6) C. difficile colitis Current Visit: Yes Status: Acute Assessment and Plan: Pt denies previous CDI. Cont po vanco to finish 14 days course. No probiotics per ID b/o immunosuppression. (7) UTI (urinary tract infection) Current Visit: Yes Status: Acute Assessment and Plan: Urine culture shows positive for Pseudomonous, sensitive to cefepime. Pt is on cefepime now. DVT Prophylaxis: Lovenox SC - Time Spent with Patient Total time spent is greater than 50% in coordination of care (as documented) at patient's floor/unit and/or counseling patient: 30 min 25 - 35 minutes Plan of Care Discussed with: patient Internal Medicine: Result - Labs CBC & Chem 7: 03/06/18 05:30 03/06/18 05:30 Labs: Short CBC 03/06/18 Range/Units 05:30 WBC 1.6 L (4.3-11.1) K/mcL Hgb 9.0 L (11.5-15.4) g/dL Hct 26.4 L (35.3-44.9) % Plt Count 140 (140-400) K/mcL Neutrophils # 1.0 L (1.6-8.9) K/mcL BMP 03/06/18 05:30 Sodium 127 L Potassium 3.4 L Chloride 95 L Carbon Dioxide 25 BUN 9 Creatinine 0.77 Glucose 136 H Calcium 7.9 L - ABG Interpretation ABG results: PT/INR, D-dimer PT 14.5 Seconds (9.4-12.1) H 03/04/18 06:05 Consult Discharge Plan - Plan Referrals: [facility] [Other] Lalito Gardner MD [Primary Care Provider] - 03/24/18 3:30 pm (This is the soonest hospital follow up...) (2) Diarrhea Qualifiers: Diarrhea type: presumed infectious Qualified Code(s): R19.7 - Diarrhea, unspecified (7) UTI (urinary tract infection) Qualifiers: Urinary tract infection type: site unspecified Hematuria presence: without hematuria Qualified Code(s): N39.0 - Urinary tract infection, site not specified
--- NOTE | 2018-03-06 17:16 | Oncology Inp Progress Note ---
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 Last radiation treatment 02/27/2018. Radiation treatment on hold to during acute hospital stay (she has 5 radiation treatments remaining) (3) Febrile neutropenia Current Visit: No Status: Inactive Assessment and plan: ANC improving to 1000 today---discontinue neupogen when ANC >1.5 She spiked a fever last night 100.6---ID managing, blood cx obtained x2 Stool culture-C Diff positive---continue oral vanco Urine culture with pseudomonas---continue cefepime Oncology: Subj Interval history: Ms. Casiano is resting comfortably, she appears non-toxic. She denies pain, nausea , vomiting, chest pain, SOB, H/A, Dizziness, or calf pain. She has discomfort with urination secondary to her moist desquamation irritation secondary to radiation treatment. She continues to feel uncomfortable secondary to her radiation induced skin desquamation. She is tolerating PO intake. Continues to have diarrhea but feels as though it is becoming slightly firmer - Constitutional Vitals: Vital Signs Temp Pulse Resp BP Pulse Ox 03/06/18 16:24 98.4 F 95 17 131/73 95 03/06/18 11:15 99.0 F 102 16 136/76 92 03/06/18 07:09 100.6 F H 76 16 133/62 92 03/06/18 05:30 98.9 F 98 16 105/60 96 03/06/18 00:40 99.3 F 112 16 133/80 92 03/05/18 21:50 101 16 110/70 95 Intake and Output 03/06/18 03/06/18 03/06/18 07:59 15:59 23:59 Intake Total 20 Balance Intake: IV Fluids 20 / Maxipime 2,000 MG In Water for 20 inj. (sterile) 20 ML @ 300 mls/ hr IVP Q12HR [facility] Rx#:[id number] Other: Meal Breakfast Percent of Meal Consumed 50% Weight 107 kg Patient Weight 03/06/18 23:59 Weight 107 kg General appearance: cooperative, no acute distress, no febrile - Head Head exam: Present: atraumatic - ENT ENT exam: Present: mucous membranes moist - Respiratory Respiratory exam: Present: CTAB. Absent: respiratory distress - Cardiovascular Cardiovascular exam: Present: RRR, +S1, +S2 - GI/Abdominal GI/Abdominal exam: Present: normal bowel sounds, soft, tenderness. Absent: guarding, rebound - Extremities Exam Extremities exam: Present: normal inspection. Absent: calf tenderness - Neurological Exam Neurological exam: Present: alert, oriented X3, no focal deficits, strengths equal and symetr throughout - Psychiatric Psychiatric exam: Present: normal affect, normal mood - Skin Skin exam: Present: dry, normal color, warm Additional comments: moist desquamation to inguinal folds and perirectal area Oncology: Obj Data - Labs CBC & Chem 7: 03/06/18 05:30 03/06/18 05:30 Labs: Laboratory Results - last 24 hr 03/06/18 03/06/18 05:30 05:30 WBC 1.6 L RBC 2.98 L Hgb 9.0 L Hct 26.4 L MCV 88.6 MCH 30.2 MCHC 34.1 RDW 13.9 Plt Count 140 MPV 9.5 Seg Neutrophils % 60.0 Band Neutrophils % 4.0 Lymphocytes % 12.0 Monocytes % 24.0 Neutrophils # 1.0 L Lymphocytes # 0.2 L Monocytes # 0.4 Platelet Estimate Normal Sodium 127 L Potassium 3.4 L Chloride 95 L Carbon Dioxide 25 BUN 9 Creatinine 0.77 Est GFR ( Amer) > 60 Est GFR (Non-Af Amer) > 60 BUN/Creatinine Ratio 12 Glucose 136 H Calculated Osmolality 265 L Calcium 7.9 L - ABG Interpretation ABG results: PT/INR, D-dimer PT 14.5 Seconds (9.4-12.1) H 03/04/18 06:05 Consult Discharge Plan - Plan Instructions: Urinary Tract Infection in Women (DC), Clostridium Difficile Infection (DC) Referrals: Lalito Gardner MD [Primary Care Provider] - 03/24/18 3:30 pm (This is the soonest hospital follow up...) Prescriptions: Morphine Sulfate SR (12 HR) [MS Contin] 15 mg PO Q8HR 9 Days #15 tablet.er levoFLOXacin [Levaquin] 750 mg PO DAILY 6 Days #6 tablet Lidocaine OINT 1 appl TP Q4H PRN #1 tube PRN Reason: Skin Irritation Vancomycin Oral Soln [Firvanq] 125 mg PO QID 10 Days #40 udc <Jenny Goddard S - Last Filed: 03/09/18 16:36> Date of Encounter: 03/06/18 - Constitutional Vitals: Vital Signs Temp Pulse Resp BP Pulse Ox 03/06/18 16:24 98.4 F 95 17 131/73 95 03/06/18 11:15 99.0 F 102 16 136/76 92 03/06/18 07:09 100.6 F H 76 16 133/62 92 03/06/18 05:30 98.9 F 98 16 105/60 96 03/06/18 00:40 99.3 F 112 16 133/80 92 03/05/18 21:50 101 16 110/70 95 Intake and Output 03/06/18 03/06/18 03/06/18 07:59 15:59 23:59 Intake Total 20 / 20 Balance 20 / 20 Intake: IV Fluids 20 / 20 Maxipime 2,000 MG In Water for 20 / 20 inj. (sterile) 20 ML @ 300 mls/ hr IVP Q12HR [facility] Rx#:[id number] Other: Meal Breakfast Percent of Meal Consumed 50% Weight 107 kg Patient Weight 03/06/18 23:59 Weight 107 kg Oncology: Obj Data - Labs CBC & Chem 7: 03/09/18 03:32 03/09/18 03:32 Labs: Laboratory Results - last 24 hr 03/06/18 03/06/18 05:30 05:30 WBC 1.6 L RBC 2.98 L Hgb 9.0 L Hct 26.4 L MCV 88.6 MCH 30.2 MCHC 34.1 RDW 13.9 Plt Count 140 MPV 9.5 Seg Neutrophils % 60.0 Band Neutrophils % 4.0 Lymphocytes % 12.0 Monocytes % 24.0 Neutrophils # 1.0 L Lymphocytes # 0.2 L Monocytes # 0.4 Platelet Estimate Normal Sodium 127 L Potassium 3.4 L Chloride 95 L Carbon Dioxide 25 BUN 9 Creatinine 0.77 Est GFR ( Amer) > 60 Est GFR (Non-Af Amer) > 60 BUN/Creatinine Ratio 12 Glucose 136 H Calculated Osmolality 265 L Calcium 7.9 L - ABG Interpretation ABG results: PT/INR, D-dimer PT 14.5 Seconds (9.4-12.1) H 03/04/18 06:05 Inpatient Charges Provider: Dr. Owen Goddard Follow up - Inpatient: [id number] - Attending Attestation I examined this patient and my medical decision-making was reviewed with the Advanced Practice Nurse. I agree with the documented findings, disposition and treatment plan as described except to the extent set forth below. 1. Anal canal cancer post chemoradiation. She completed 2 cycles of 5-FU and mitomycin. She has not finished her radiation 2. Admitted with local complications from radiation neutropenia She is receiving Neupogen. Neutrophil counts improved to 1000 from 600 3. C. difficile colitis. She is on cefepime and oral vancomycin. Her neutrophil counts may increase to higher levels because of C. difficile once her bone marrow recover 4. Neutropenic fever. New set of blood cultures obtained. She grew Pseudomonas in the urine culture 5. Cancer related pain. Her pain is mostly in the groin and in the perianal area with skin desquamation Increased long-acting morphine to every 8 hours Increase oxycodone 5 mg to 1-2 tablets every 3 hours when necessary
[2018-03-07] MEDS: *HR* Morphine Sulfate SR (12 HR) 15 MG TABLET.ER PO SCH ×4 (01:35→23:57)
[2018-03-07] MEDS: *HR* OxyCODONE Immed Rel 5 MG TABLET PO PRN ×4 (03:40→20:12)
[2018-03-07 04:09] LABS: Basophils % 0.5 %; Hematocrit 24.6 % (35.3-44.9); Hemoglobin 8.4 g/dL (11.5-15.4); Immature Granulocytes % 0.5 % (0-4); Lymphocytes # 0.1 K/mcL (0.6-4.6); Lymphocytes % 2.5 %; Mean Corpuscular HGB Conc 34.1 g/dL (31.6-35.5); Mean Corpuscular Hemoglobin 30.5 pg (28.0-33.3); Mean Corpuscular Volume 89.5 fL (83.0-100.0); Mean Platelet Volume 9.4 fL (9.4-12.4); Monocytes # 0.4 K/mcL (0.0-1.3); Monocytes % 18.7 %; Platelet Count 127 K/mcL (140-400); Red Blood Count 2.75 M/mcL (3.82-4.97); Red Cell Distribution Width 13.8 % (11.5-14.5); Segmented Neutrophils % 76.8 %
[2018-03-07 04:14] LABS: Neutrophils # 1.5 K/mcL (1.6-8.9)
[2018-03-07 04:46] LABS: BUN/Creatinine Ratio 14 (6-26); Blood Urea Nitrogen 10 mg/dL (6-20); Calcium 7.8 mg/dL (8.6-10.3); Carbon Dioxide 26 mEq/L (23-29); Chloride 98 mEq/L (98-107); Glucose 146 mg/dL (70-105); Osmolality,Calculated 272 (280-300); Potassium 3.6 mEq/L (3.5-5.1); Sodium 130 mEq/L (136-145); eGFR For Non-African Americans > 60 (> 60)
[2018-03-07 04:52] LABS: Anisocytosis 1+ (Not Present); Platelet Estimate Normal (Normal)
[2018-03-07] MEDS: Cefepime HCl 2,000 MG in Water for inj. (sterile) 20 ML 20 ML IVP SCH ×2 (05:46→17:35)
[2018-03-07] MEDS: *HR* Enoxaparin 40 MG/0.4 ML SYRINGE SQ SCH (05:47)
[2018-03-07] MEDS: Vancomycin Oral Soln 125 MG/2.5 ML UDC PO SCH ×4 (08:15→20:13)
--- NOTE | 2018-03-07 13:05 | Internal Med Progress Note ---
Hospitalist Progress Note - Encounter Date of Encounter: 03/07/18 Time of Encounter: 09:00 - Subjective Interval History: Pt has only one BM with formed stool overnight, feels better. Denies abd pain/ nausea. Still has low fever this morning. - Exam Vitals: Temp Pulse Resp BP Pulse Ox 97.5 F L 92 17 119/74 91 03/07/18 12:00 03/07/18 12:00 03/07/18 12:00 03/07/18 12:00 03/07/18 12:00 Exam: Gen: Vitals noted. No acute distress. HEENT: Normocephalic, atraumatic Neck: Supple. No adenopathy. Cardiac: RRR, no murmur, +S1/S2 Pulmonary: CTA bilaterally, no wheezes, rales or rhonchi, equal chest expansion Abdomen: soft, lower abdomen mildly tender to palpation, no guarding or rebound Back: Nontender throughout. MSK: ROM intact, no joint swelling noted Extremities: no BLE edema, nontender calf, no cyanosis or clubbing Skin: Erythema consistent with cutaneous candidiasis in the groin folds. External rectal exam unremarkable for abscess. Neuro: moves all extremities, no focal deficits. A&Ox3 Psych: Appropriate mood and behavior - Assessment and Plan (1) Febrile neutropenia Current Visit: No Status: Inactive Assessment and Plan: Still has low fever. Cont Cefepime. Highly suspect caused by C Diff Colitis or UTI. On po vanco. WBC level increasing slightly. (2) Diarrhea Current Visit: No Status: Inactive Assessment and Plan: C Diff positive. On Vanco po. Cont to finish 14 days course. (3) Cancer of anorectum Current Visit: No Status: Inactive Assessment and Plan: Appreciate hemo follow up. Cont OP management. (4) DVT prophylaxis Current Visit: No Status: Acute Assessment and Plan: SQ Lovenox (5) Hyponatremia Current Visit: No Status: Acute Assessment and Plan: Sodium 130 today. Cont fluid restriction and sodium pills. (6) C. difficile colitis Current Visit: Yes Status: Acute Assessment and Plan: Pt denies previous CDI. Cont po vanco to finish 14 days course. No probiotics per ID b/o immunosuppression. (7) UTI (urinary tract infection) Current Visit: Yes Status: Acute Assessment and Plan: Urine culture shows positive for Pseudomonous, sensitive to cefepime. Pt is on cefepime now. DVT Prophylaxis: Lovenox SC - Time Spent with Patient Total time spent is greater than 50% in coordination of care (as documented) at patient's floor/unit and/or counseling patient: 25 - 35 minutes Plan of Care Discussed with: patient Internal Medicine: Result - Labs CBC & Chem 7: 03/07/18 03:53 03/07/18 03:53 Labs: Short CBC 03/07/18 Range/Units 03:53 WBC 2.0 L (4.3-11.1) K/mcL Hgb 8.4 L (11.5-15.4) g/dL Hct 24.6 L (35.3-44.9) % Plt Count 127 L (140-400) K/mcL Neutrophils # 1.5 L (1.6-8.9) K/mcL BMP 03/07/18 03:53 Sodium 130 L Potassium 3.6 Chloride 98 Carbon Dioxide 26 BUN 10 Creatinine 0.73 Glucose 146 H Calcium 7.8 L - ABG Interpretation ABG results: PT/INR, D-dimer PT 14.5 Seconds (9.4-12.1) H 03/04/18 06:05 Consult Discharge Plan - Plan Referrals: [facility]EE [Other] Lalito Gardner MD [Primary Care Provider] - 03/24/18 3:30 pm (This is the soonest hospital follow up...) (2) Diarrhea Qualifiers: Diarrhea type: presumed infectious Qualified Code(s): R19.7 - Diarrhea, unspecified (7) UTI (urinary tract infection) Qualifiers: Urinary tract infection type: site unspecified Hematuria presence: without hematuria Qualified Code(s): N39.0 - Urinary tract infection, site not specified
[2018-03-08] MEDS: *HR* OxyCODONE Immed Rel 5 MG TABLET PO PRN ×6 (01:03→19:02)
[2018-03-08 04:02] LABS: Basophils % 1.5 %; Eosinophils % 0.8 %; Hematocrit 24.7 % (35.3-44.9); Hemoglobin 8.4 g/dL (11.5-15.4); Immature Granulocytes % 1.9 % (0-4); Lymphocytes # 0.2 K/mcL (0.6-4.6); Lymphocytes % 6.5 %; Mean Corpuscular Hemoglobin 30.3 pg (28.0-33.3); Mean Corpuscular Volume 89.2 fL (83.0-100.0); Mean Platelet Volume 9.4 fL (9.4-12.4); Monocytes # 0.5 K/mcL (0.0-1.3); Monocytes % 18.5 %; Neutrophils # 1.8 K/mcL (1.6-8.9); Platelet Count 114 K/mcL (140-400); Red Blood Count 2.77 M/mcL (3.82-4.97); Red Cell Distribution Width 14.1 % (11.5-14.5); Segmented Neutrophils % 70.8 %
[2018-03-08] MEDS: Mag Hydrox/Al Hydrox/Simeth 30 ML UDC PO PRN (04:09)
[2018-03-08 04:17] LABS: BUN/Creatinine Ratio 15 (6-26); Blood Urea Nitrogen 12 mg/dL (6-20); Calcium 8.4 mg/dL (8.6-10.3); Carbon Dioxide 26 mEq/L (23-29); Chloride 98 mEq/L (98-107); Glucose 128 mg/dL (70-105); Osmolality,Calculated 271 (280-300); Potassium 3.6 mEq/L (3.5-5.1); Sodium 130 mEq/L (136-145); eGFR For Non-African Americans > 60 (> 60)
[2018-03-08 04:19] LABS: Platelet Estimate Decreased (Normal)
[2018-03-08] MEDS: Cefepime HCl 2,000 MG in Water for inj. (sterile) 20 ML 20 ML IVP SCH ×2 (06:23→17:28)
[2018-03-08] MEDS: *HR* Enoxaparin 40 MG/0.4 ML SYRINGE SQ SCH (06:24)
[2018-03-08] MEDS: *HR* Morphine Sulfate SR (12 HR) 15 MG TABLET.ER PO SCH ×2 (08:54→16:18)
[2018-03-08] MEDS: Lidocaine OINT 35.44 GM TUBE TP PRN (08:54)
[2018-03-08] MEDS: Vancomycin Oral Soln 125 MG/2.5 ML UDC PO SCH ×4 (10:45→20:05)
--- NOTE | 2018-03-08 11:16 | Internal Med Progress Note ---
Hospitalist Progress Note - Encounter Date of Encounter: 03/08/18 Time of Encounter: 09:00 - Subjective Interval History: Pt has only one BM with formed stool over last 24 hours, feels better. Denies abd pain/nausea. No fever in last 24 hours. - Exam Vitals: Temp Pulse Resp BP Pulse Ox 98.1 F 94 18 119/70 93 03/08/18 07:19 03/08/18 07:19 03/08/18 07:19 03/08/18 07:19 03/08/18 09:02 Exam: Gen: Vitals noted. No acute distress. HEENT: Normocephalic, atraumatic Neck: Supple. No adenopathy. Cardiac: RRR, no murmur, +S1/S2 Pulmonary: CTA bilaterally, no wheezes, rales or rhonchi, equal chest expansion Abdomen: soft, lower abdomen mildly tender to palpation, no guarding or rebound Back: Nontender throughout. MSK: ROM intact, no joint swelling noted Extremities: no BLE edema, nontender calf, no cyanosis or clubbing Skin: Erythema consistent with cutaneous candidiasis in the groin folds. External rectal exam unremarkable for abscess. Neuro: moves all extremities, no focal deficits. A&Ox3 Psych: Appropriate mood and behavior - Assessment and Plan (1) Febrile neutropenia Current Visit: No Status: Inactive Assessment and Plan: No fever over 24 hours. Cont Cefepime. Highly suspect caused by C Diff Colitis or UTI. On po vanco for C Diff. WBC level increasing slightly to 2.6 today with ANC 1.8. (2) Diarrhea Current Visit: No Status: Inactive Assessment and Plan: C Diff positive. On Vanco po. Cont to finish 14 days course. (3) Cancer of anorectum Current Visit: No Status: Inactive Assessment and Plan: Appreciate hemo follow up. Cont OP management. (4) DVT prophylaxis Current Visit: No Status: Acute Assessment and Plan: SQ Lovenox (5) Hyponatremia Current Visit: No Status: Acute Assessment and Plan: Sodium 130 today. Cont fluid restriction and sodium pills. (6) C. difficile colitis Current Visit: Yes Status: Acute Assessment and Plan: Pt denies previous CDI. Cont po vanco to finish 14 days course. No probiotics per ID b/o immunosuppression. (7) UTI (urinary tract infection) Current Visit: Yes Status: Acute Assessment and Plan: Urine culture shows positive for Pseudomonous, sensitive to cefepime. Pt is on cefepime now. DVT Prophylaxis: Lovenox SC - Summary of Assessment and Plan Summary of Assessment and Plan: If remains afebrile over 48 hours, will consider d/c iv abx, change to po abx only and d/c home. Will d/w ID and oncology. - Time Spent with Patient Total time spent is greater than 50% in coordination of care (as documented) at patient's floor/unit and/or counseling patient: 30 min 25 - 35 minutes Plan of Care Discussed with: patient Internal Medicine: Result - Labs CBC & Chem 7: 03/08/18 03:45 03/08/18 03:45 Labs: Short CBC 03/08/18 Range/Units 03:45 WBC 2.6 L (4.3-11.1) K/mcL Hgb 8.4 L (11.5-15.4) g/dL Hct 24.7 L (35.3-44.9) % Plt Count 114 L (140-400) K/mcL Neutrophils # 1.8 (1.6-8.9) K/mcL BMP 03/08/18 03:45 Sodium 130 L Potassium 3.6 Chloride 98 Carbon Dioxide 26 BUN 12 Creatinine 0.80 Glucose 128 H Calcium 8.4 L - ABG Interpretation ABG results: PT/INR, D-dimer PT 14.5 Seconds (9.4-12.1) H 03/04/18 06:05 Consult Discharge Plan - Plan Referrals: [facility]EE [Other] Lalito Gardner MD [Primary Care Provider] - 03/24/18 3:30 pm (This is the soonest hospital follow up...) (2) Diarrhea Qualifiers: Diarrhea type: presumed infectious Qualified Code(s): R19.7 - Diarrhea, unspecified (7) UTI (urinary tract infection) Qualifiers: Urinary tract infection type: site unspecified Hematuria presence: without hematuria Qualified Code(s): N39.0 - Urinary tract infection, site not specified
--- NOTE | 2018-03-08 16:54 | Electrocardiograph Report ---
[address] [address] Test Date: 2018-03-03 Pat Name: Cornelio Casiano Department: [id number] Room: [facility] Gender: F Accounting Bookkeeper: : 1970 Requested By: Samm Staples Order Number: [id number] Reading MD: Norberto Holt Measurements Intervals [place] Rate: 101 P: 0 OK: 132 QRS: 27 QRSD: 83 T: -3 QT: 343 QTc: 445 Interpretive Statements Sinus tachycardia Nonspecific ST-T changes Electronically Signed On 03-08-2018 16:52:38 EDT by Norberto Holt
[2018-03-09] MEDS: *HR* OxyCODONE Immed Rel 5 MG TABLET PO PRN ×5 (00:03→13:00)
[2018-03-09] MEDS: *HR* Morphine Sulfate SR (12 HR) 15 MG TABLET.ER PO SCH ×3 (00:47→16:10)
[2018-03-09 03:52] LABS: Hematocrit 24.4 % (35.3-44.9); Hemoglobin 8.1 g/dL (11.5-15.4); Mean Corpuscular HGB Conc 33.2 g/dL (31.6-35.5); Mean Corpuscular Hemoglobin 30.2 pg (28.0-33.3); Mean Platelet Volume 9.6 fL (9.4-12.4); Platelet Count 114 K/mcL (140-400); Red Blood Count 2.68 M/mcL (3.82-4.97); Red Cell Distribution Width 14.3 % (11.5-14.5)
[2018-03-09 04:06] LABS: BUN/Creatinine Ratio 14 (6-26); Blood Urea Nitrogen 11 mg/dL (6-20); Calcium 8.2 mg/dL (8.6-10.3); Carbon Dioxide 26 mEq/L (23-29); Chloride 100 mEq/L (98-107); Glucose 114 mg/dL (70-105); Osmolality,Calculated 274 (280-300); Potassium 3.5 mEq/L (3.5-5.1); Sodium 132 mEq/L (136-145); eGFR For Non-African Americans > 60 (> 60)
[2018-03-09 04:31] LABS: Lymphocytes # 0.1 K/mcL (0.6-4.6); Monocytes # 0.2 K/mcL (0.0-1.3); Neutrophils # 2.6 K/mcL (1.6-8.9)
[2018-03-09 04:32] LABS: Platelet Estimate Slight Decrease (Normal)
[2018-03-09] MEDS: *HR* Enoxaparin 40 MG/0.4 ML SYRINGE SQ SCH (05:34)
[2018-03-09] MEDS: Cefepime HCl 2,000 MG in Water for inj. (sterile) 20 ML 20 ML IVP SCH (05:35)
[2018-03-09] MEDS: Vancomycin Oral Soln 125 MG/2.5 ML UDC PO SCH ×3 (08:49→16:11)
[2018-03-09 11:55] VITALS: BP 108/69
--- NOTE | 2018-03-09 13:49 | Oncology Inp Progress Note ---
Date of Encounter: 03/09/18 Time of Encounter: 11:30 (1) Skin desquamation Status: Acute Assessment and plan: Secondary to perianal radiation Radiation on hold during acute hospital stay-plan to resume later this week after follow up with Dr. 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 Last radiation treatment 02/27/2018. Radiation treatment on hold to during acute hospital stay (she has 5 radiation treatments remaining) She has a follow up with Dr. Anderson later this week to plan to restart treatment We will call with appointment with Dr. Reyes (3) C. difficile colitis Status: Acute Assessment and plan: Febrile Neutropenia-resolved with ANC now 2.6, she has been afebrile for >72 hours Neupogen discontinued Urine + pseudomonas, treating with Cefepime-Can likely transition to PO Levaquin 750mg PO daily when ready for discharge to complete 10 day course per ID recs C diff +, treating with PO vanc-plan for 14 days duration of tx per ID recs Repeat blood cultures x 2 sets are NGTD. (4) Inadequate pain control Status: Acute Assessment and plan: Secondary to perirectal discomfort and inguinal skin excoriation with radiotherapy Over the weekend MS Contin was increased to 15 mg Q8 hours with oxycodone 10 mg Q3 hours as needed. She is consistently requiring 10 mg Oxycodone for break through every 3 hours ( She has had 70 mg oxycodone in the past 24 hours), if she goes any longer than this 3 hours without oxycodone her pain become uncontrollable Given her high demand of breakthrough medication I will increase her long acting using a morphine equivalent conversion She is now to take 30 mg MS Contin as her 1st dose, 15 mg MS Contin as her 2nd dose, 30 mg MS Contin as her 3rd dose (every 8 hour interval dosing), then utilize 5-10 mg oxycodone every 4 hours PRN. We discussed that this should help to decrease her PRN usage. This may be tapered off as she completes treatment She was given a prescription of MS Contin to allow for the increase in dosage until she is due for refill from her original prescription OARRS checked and appropriate. Oncology: Subj Interval history: Ms. Casiano is ambulating about in her room. She reports she is feeling improved today. She denies nausea, vomiting or abdominal pain. She continues to have diarrhea which is loose but not watery in consistency, she has had diarrhea once this morning, it has tapered to about 1-2x/day. She denies fevers or chills and according to vitals trend she has been afebrile for >3 days. Continues to have inguinal/perirectal discomfort secondary to radiation. - Constitutional Vitals: Vital Signs Temp Pulse Resp BP Pulse Ox 03/09/18 11:54 97.9 F 88 17 108/69 93 03/09/18 07:49 98.0 F 98 16 113/74 98 03/09/18 05:12 97.9 F 93 15 113/64 95 03/09/18 01:17 98.1 F 80 15 103/66 94 03/08/18 21:53 98.4 F 91 15 135/62 95 03/08/18 17:04 98.0 F 97 16 116/76 96 Intake and Output 03/08/18 03/09/18 03/09/18 23:59 07:59 15:59 Intake Total 20 / 20 260 / 260 Balance 20 / 20 260 / 260 Intake: IV Fluids 20 / 20 20 / 20 Maxipime 2,000 MG In Water for 20 / 20 20 / 20 inj. (sterile) 20 ML @ 300 mls/ hr IVP Q12HR [facility] Rx#:[id number] Oral 240 / 240 Other: Meal Breakfast Percent of Meal Consumed 75% Weight 109.225 kg Patient Weight 03/09/18 23:59 Weight 109.225 kg General appearance: cooperative, no acute distress, no febrile - Head Head exam: Present: atraumatic - ENT ENT exam: Present: mucous membranes moist Additional comments: no oral lesions - Respiratory Respiratory exam: Present: CTAB. Absent: respiratory distress - Cardiovascular Cardiovascular exam: Present: RRR, +S1, +S2 - GI/Abdominal GI/Abdominal exam: Present: normal bowel sounds, soft. Absent: guarding, rebound, tenderness - Extremities Exam Extremities exam: Absent: calf tenderness - Neurological Exam Neurological exam: Present: alert, oriented X3, no focal deficits, strengths equal and symetr throughout - Psychiatric Psychiatric exam: Present: normal affect, normal mood - Skin Skin exam: Present: dry, intact, normal color, warm Oncology: Obj Data - Labs CBC & Chem 7: 03/09/18 03:32 03/09/18 03:32 Labs: Laboratory Results - last 24 hr 03/09/18 03/09/18 03:32 03:32 WBC 3.0 L RBC 2.68 L Hgb 8.1 L Hct 24.4 L MCV 91.0 MCH 30.2 MCHC 33.2 RDW 14.3 Plt Count 114 L MPV 9.6 Seg Neutrophils % 82.0 Band Neutrophils % 6.0 H Lymphocytes % 4.0 Monocytes % 8.0 Neutrophils # 2.6 Lymphocytes # 0.1 L Monocytes # 0.2 Platelet Estimate Slight Decrease L Sodium 132 L Potassium 3.5 Chloride 100 Carbon Dioxide 26 BUN 11 Creatinine 0.79 Est GFR ( Amer) > 60 Est GFR (Non-Af Amer) > 60 BUN/Creatinine Ratio 14 Glucose 114 H Calculated Osmolality 274 L Calcium 8.2 L - ABG Interpretation ABG results: PT/INR, D-dimer PT 14.5 Seconds (9.4-12.1) H 03/04/18 06:05 Consult Discharge Plan - Plan Instructions: Urinary Tract Infection in Women (DC), Clostridium Difficile Infection (DC) Referrals: Lalito Gardner MD [Primary Care Provider] - 03/24/18 3:30 pm (This is the soonest hospital follow up...) Prescriptions: Morphine Sulfate SR (12 HR) [MS Contin] 15 mg PO Q8HR 9 Days #15 tablet.er levoFLOXacin [Levaquin] 750 mg PO DAILY 6 Days #6 tablet Lidocaine OINT 1 appl TP Q4H PRN #1 tube PRN Reason: Skin Irritation Vancomycin Oral Soln [Firvanq] 125 mg PO QID 10 Days #40 [facility] Inpatient Charges Provider: Aria Arriola CNP Follow up - Inpatient: [id number]
--- NOTE | 2018-03-09 14:39 | Infectious Disease Progress No ---
Date of Encounter: 03/09/18 Time of Encounter: 14:37 - Assessment and Plan (1) Febrile neutropenia Current Visit: Yes Status: Acute Likely secondary to C. diff and recent chemotherapy. ANC improved to 2600. Afebrile. Neupogen per the Hem/Onc team. Continue to trend. Repeat blood cultures x 2 sets are NGTD. (2) C. difficile colitis Current Visit: Yes Status: Acute First occurrence. Mild. Clinically improved, but had increase stooling overnight. Likely secondary to re -starting IV antibiotics yesterday. Continue vancomycin by mouth 125 mg every 6 hours. (day 6) Duration of treatment depends on the clinical picture, but likely a total of 14 days. Recommend adequate hydration with either IV or oral fluids. We will avoid probiotics at this time given the patient's immunocompromised status. Continue C. difficile precautions per the hospital policy. (3) UTI (urinary tract infection) Current Visit: Yes Status: Acute Asymptomatic bacteriuria vs. UTI. Urine culture is positive for espitia-sensitive PSEA. The patient reports chronic dysuria due to the radiation power to her genital region. Continue Cefepime 2 grams IV Q12H. Duration of treatment depends on the clinical picture. Can likely transition to PO Levaquin 750mg PO daily when ready for discharge to complete 10 day course. Monitor renal function and dose-adjust antibiotics. 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 Was started on 5-FU/mitomycin in January 2018. Her second cycle was 02/24/2018. Tends to have diarrhea post-chemotherapy for 2-3 days and then it resolves. (5) Hyponatremia Current Visit: No Status: Acute Likely secondary to poor GI intake. Recommend adequate fluid hydration either PO or IV. Management per the primary team. (6) Allergy to multiple antibiotics Current Visit: No Status: Acute Allergic to sulfa and penicillin. She had severe rash with both, but no anaphylaxis. (7) Skin desquamation Current Visit: No Status: Acute Secondary to radiation therapy. Management per the Hem/Onc team. - Subjective Interval history: Patient seen and examined. No acute events noted overnight. Patient states overall she is feeling better today. Denies fevers, chills, or rigors. Denies chest pain, shortness of breath, or cough. Denies nausea or vomiting. Reports stools seem to be more formed and she has only had one this morning. She reports burning in the genital region with urination and defecation that is chronic. She denies any abdominal pain or flank pains. She denies oral thrush or new skin lesions. She reports sloughing of the skin to the genital region secondary to radiation therapy. Infect Dis PN-Objective Data - Labs CBC & Chem 7: 03/09/18 03:32 03/09/18 03:32 Labs: Laboratory Results - last 24 hr 03/09/18 03/09/18 03:32 03:32 WBC 3.0 L RBC 2.68 L Hgb 8.1 L Hct 24.4 L MCV 91.0 MCH 30.2 MCHC 33.2 RDW 14.3 Plt Count 114 L MPV 9.6 Seg Neutrophils % 82.0 Band Neutrophils % 6.0 H Lymphocytes % 4.0 Monocytes % 8.0 Neutrophils # 2.6 Lymphocytes # 0.1 L Monocytes # 0.2 Platelet Estimate Slight Decrease L Sodium 132 L Potassium 3.5 Chloride 100 Carbon Dioxide 26 BUN 11 Creatinine 0.79 Est GFR ( Amer) > 60 Est GFR (Non-Af Amer) > 60 BUN/Creatinine Ratio 14 Glucose 114 H Calculated Osmolality 274 L Calcium 8.2 L Cultures: Cultures 03/06/18 14:26 Blood Culture - Preliminary Peripheral Venipuncture Culture is incubating and being continuously monitored for growth. Final report to follow. 03/06/18 14:20 Blood Culture - Preliminary Peripheral Venipuncture Culture is incubating and being continuously monitored for growth. Final report to follow. Exam - Constitutional Vitals: Temp Pulse Resp BP Pulse Ox 97.9 F 88 17 108/69 93 03/09/18 11:54 03/09/18 11:54 03/09/18 11:54 03/09/18 11:54 03/09/18 11:54 General appearance: cooperative, no acute distress, obese - Head Head exam: Present: atraumatic, normal inspection, normocephalic - Eye Eye exam: Present: EOMI, normal appearance, PERRL Pupils: Present: normal accommodation - ENT ENT exam: Present: mucous membranes moist - Neck Neck exam: Present: normal inspection - Respiratory Respiratory exam: Present: CTAB. Absent: rales, respiratory distress, rhonchi, wheezes - Cardiovascular Cardiovascular exam: Present: RRR, +S1, +S2 - GI/Abdominal GI/Abdominal exam: Present: distended (obese), normal bowel sounds, soft. Absent: tenderness - Extremities Exam Extremities exam: Present: normal inspection. Absent: joint swelling, pedal edema, tenderness - Neurological Exam Neurological exam: Present: alert, oriented X3, no focal deficits - Psychiatric Psychiatric exam: Present: normal affect, normal mood - Skin Skin exam: Present: dry, intact, normal color, warm Consult Discharge Plan - Plan Instructions: Urinary Tract Infection in Women (DC), Clostridium Difficile Infection (DC) Referrals: Lalito Gardner MD [Primary Care Provider] - 03/24/18 3:30 pm (This is the soonest hospital follow up...) Prescriptions: Morphine Sulfate SR (12 HR) [MS Contin] 15 mg PO Q8HR 9 Days #15 tablet.er levoFLOXacin [Levaquin] 750 mg PO DAILY 6 Days #6 tablet Lidocaine OINT 1 appl TP Q4H PRN #1 tube PRN Reason: Skin Irritation Vancomycin Oral Soln [Firvanq] 125 mg PO QID 10 Days #40 udc - Attending Attestation I examined this patient and my medical decision-making was reviewed with the Resident Physician. I agree with the documented findings, disposition and treatment plan as described except to the extent set forth below.
--- NOTE | 2018-03-09 15:03 | Discharge Summary ---
- NOTES TO OUTPATIENT PROVIDER Notes to Outpatient Provider: 1. Pt will cont levaquin po for 5 more days for pseudomonas UTI. 2. Pt will cont po vanco 125mg qid for 10 more days for C Diff colitis. Orders not resulted at time of discharge: Pending orders 03/06/18 14:26 Culture,Blood [BC] Stat Date of Encounter: 03/09/18 Time of Encounter: 02:00 - Discharge Diagnosis (1) Febrile neutropenia Priority: Primary Status: Inactive (2) Diarrhea Priority: Primary Status: Inactive Qualifiers: Qualified Code(s): R19.7 - Diarrhea, unspecified (3) Cancer of anorectum Priority: Secondary Status: Inactive (4) DVT prophylaxis Priority: Secondary Status: Acute (5) Hyponatremia Priority: Primary Status: Acute (6) C. difficile colitis Priority: Primary Status: Acute (7) UTI (urinary tract infection) Priority: Primary Status: Acute Qualifiers: Qualified Code(s): N39.0 - Urinary tract infection, site not specified Hospital course: Ms. Casiano is a 47 year old female present to ER for fever, hx of anal cancer on chemo with leukocytopenia. She was admitted as neutropenic fever. Pt also has diarrhea. Stool test shows C Diff positive. ID was consulted. Pt was placed on cefepime for neutropenic fever and po vanco for C Diff. Her Urine culture shows positive for pseudomonas, espitia-sensitive. After treatment, her fever resolved. No fever in last 48 hours. Her diarrhea stopped, has only one BM last night. Will d/c pt home with po abx. Will finish 10 days course of abx for her UTI and 14 days course po vanco for C Diff. I have seen and examined pt today. Pt is awake, alert, pleasant. Vitals stable. WBC get up to 3.0 with ANC 2.6. Pt d/c home in a stable status. - Time Spent with Patient Total time spent providing and/or coordinating discharge services: 30 min Less than 30 minutes - Discharge Medications Prescriptions: levoFLOXacin [Levaquin] 750 mg PO DAILY 6 Days #6 tablet Vancomycin Oral Soln [Firvanq] 125 mg PO QID 10 Days #40 udc Home Medications: Lactulose [Enulose] 10 gm PO BID PRN #500 mls 01/07/18 [Rx] Dexamethasone [Decadron] 4 mg PO BID PRN #45 tab 01/15/18 [Rx] Lidocaine/Prilocaine [Emla] 1 appl TP AD PRN #30 gm 01/15/18 [Rx] Ondansetron [Zofran] 8 mg PO Q8HR PRN #60 tablet 01/15/18 [Rx] Prochlorperazine Maleate [Compazine] 10 mg PO Q6HR PRN #90 tablet 01/15/18 [Rx] HydrOXYzine Pamoate [Vistaril] 50 mg PO BID PRN #60 capsule 01/20/18 [Rx] Magic Mouthwash [Magic Mouthwash BLM] 10 ml PO QID PRN #240 ml 02/03/18 [Rx] Oxycodone HCl 5 mg PO BID PRN 30 Days #60 tablet 02/18/18 [Rx] Phenazopyridine [Pyridium] 100 mg PO TID PRN #90 tablet 02/20/18 [Rx] Morphine Sulfate [Arymo ER] 15 mg PO Q12H 20 Days #40 tab.po.er 02/26/18 [Rx] Omeprazole [PriLOSEC] 40 mg PO DAILY 03/04/18 [History] Vancomycin Oral Soln [Firvanq] 125 mg PO QID 10 Days #40 udc 03/09/18 [Rx] levoFLOXacin [Levaquin] 750 mg PO DAILY 6 Days #6 tablet 03/09/18 [Rx] Allergies/Adverse Reactions: 3 Allergy/AdvReac Type Severity Reaction Status Date / Time Penicillins Allergy Rash Verified 03/03/18 20:47 Sulfa (Sulfonamide Allergy Rash Verified 03/03/18 20:47 Antibiotics) Date of admission: 03/04/18 12:23 Primary care physician: Lalito Gardner MD Discharging clinician: Dara Huang Anticipated date of discharge: 03/09/18 - Constitutional Vitals: Temp Pulse Resp BP Pulse Ox 97.9 F 88 17 108/69 93 03/09/18 11:54 03/09/18 11:54 03/09/18 11:54 03/09/18 11:54 03/09/18 11:54 General appearance: Present: A&O X 3, morbidly obese, pleasant, no acute distress, answers questions appropriately Exam: in NAD - Head Head exam: Present: atraumatic, normocephalic - Eye Eye exam: Present: PERRL, conjuntiva pink, sclera anicteric Pupils: Present: PERRL - Neck Neck exam general surgery: Present: supple, trachea midline. Absent: lymphadenopathy - Respiratory Respiratory exam: Present: CTAB. Absent: accessory muscle use, rales, rhonchi, wheezes - Cardiovascular Cardiovascular exam: Present: RRR, +S1, +S2. Absent: diastolic murmur, gallop, rubs, systolic murmur - GI/Abdominal GI/Abdominal exam: Present: normal bowel sounds, soft, no peritoneal signs. Absent: distended, tenderness - Extremities Exam Extremities exam: Present: warm, radial pulses palpable and symmetrical. Absent : calf tenderness, cyanotic, pedal edema - Neurological Exam Neurological exam: Present: CN II-XII intact, oriented X3, no focal deficits. Absent: pronater drift, facial droop, speech deficit - Skin Skin exam: Present: dry, intact - Patient Status Disposition: Home, Self-Care Condition: Good Functional capacity at discharge: independent ambulation Overall status at discharge: patient is back to baseline - Discharge Instructions Follow Up With: SYDNEE [Other] Lalito Gardner MD [Primary Care Provider] - 03/24/18 3:30 pm (This is the soonest hospital follow up...) - Diet and Activity Activity: increase activity as tolerated Diet: advance to your usual diet, regular diet
[2018-03-09] MEDS ORDERED: levoFLOXacin 750 MG TABLET PO SCH (15:30)
--- NOTE | 2018-03-14 20:04 | Electrocardiograph Report ---
[address] [place], [place] [address] Test Date: 2018-03-04 Pat Name: Cornelio Casiano Department: [id number] Room: 2A Gender: Ticket Counter: : [id number] Requested By: Kennedy Longoria Order Number: [id number] Reading MD: Po Flower Measurements Intervals [place] Rate: 127 P: TN: QRS: 7 QRSD: 131 T: 180 QT: 278 QTc: 327 Interpretive Statements Junctinal and ventricular bigeminy Left bundle branch block Electronically Signed On 03-14-2018 20:03:24 EDT by Po Flower
== END 2018-03-09 17:40 | disposition home or self-care (01) | DRG 809 ==
LOC: EMEROOARM 20:34 → 2ANU 20:34 → SUATTDRO 03-04 12:23
PROVIDERS: ADMIT Internal Medicine; ATTEND Internal Medicine